=== PATIENT | female | born 1935 | race Caucasian/White ===

== ENCOUNTER → 2016-12-20 | Outpatient (CLI) | payer BC ==
[~2016-12-20] MED LIST: ALBUAER2 INH; ASPCH81X PO; CHOL20009 PO; CYAN100T PO; DILT120C68 PO; FLUT1SPR12 NAE; LAMO200T38 PO; LEVO100T7 PO; LOSA50TA54 PO; MIRT15TA3 PO; SERT25TA PO; SIMV20TA2 PO; TRAZ50TA35 PO
--- NOTE | 2016-12-20 16:38 | MAMMOGRAPHY REPORT ---
BILATERAL DIGITAL SCREENING MAMMOGRAM WITH CAD: 12/20/2016 CLINICAL HISTORY: Routine screening. Patient has no complaints. TECHNIQUE: Bilateral CC and MLO views were obtained. Current study was also evaluated with a Comput er Aided Detection (CAD) system. COMPARISON: Comparison is made to exams dated: 12/16/2015 mammogram, 11/19/2014 mammogram, 05/23/2013 mammogram, and 05/22/2012 mammogram - [facility]. BREAST COMPOSITION: There are scattered areas of fibroglandular density in both breasts. FINDINGS: There is a newly visualized 4.8 mm mass in the lower inner anterior right breast, for whi ch additional spot compression tomosynthesis views and possibly ultrasound are recommended. A 4.6 m m nodular asymmetry is seen posterior to the mass on the CC view which could represent normal fibrog landular tissue. However, evaluation of this second area should be performed at the time of spot co mpression views of the mass. There is a stable circumscribed 6 mm mass in the upper outer quadrant of the right breast. There ar e scattered benign-appearing calcifications and vascular calcifications in the breasts. No other carlos picious mass, architectural distortion or cluster of microcalcifications is seen. IMPRESSION: ACR BI-RADS CATEGORY 0: INCOMPLETE EVALUATION: NEED ADDITIONAL IMAGING EVALUATION The newly visualized 4.8 mm mass in the right lower inner quadrant, and second 4.6 mm nodular asymme try in the right medial breast need additional imaging evaluation. The patient will be called to schedule an appointment. Approximately 10% of breast cancers are not detected with mammography. A negative mammographic repor t should not delay biopsy if a clinically suggestive mass is present. Obdulia Vigil M.D. ay/:12/20/2016 13:57:05 Director Process Improvement: Kyra Bhatia, [facility] letter sent: Addl Imaging 0 BI-RADS Code: ACR BI-RADS Category 0: Incomplete Evaluation: Need Additional Imaging Evaluation
== END | disposition home or self-care (01) ==
LOC: C.MAMM 10:26
PROVIDERS: ATTEND Family Medicine
DX: Z12.31 Encounter for screening mammogram for malignant neoplasm of breast (principal); N63 Unspecified lump in breast

== ENCOUNTER → 2016-12-28 | Outpatient (CLI) | payer BC ==
--- NOTE | 2016-12-28 16:39 | MAMMOGRAPHY REPORT ---
UNILATERAL RIGHT DIGITAL DIAGNOSTIC MAMMOGRAM TOMOSYNTHESIS AND TARGETED RIGHT ULTRASOUND: 12/28/2016 CLINICAL HISTORY: 81-year-old woman called back from screening mammography for a newly visualized sm all circumscribed mass and nodular asymmetry in the medial anterior right breast. TECHNIQUE: Spot compression CC and MLO to the digital and tomosynthesis images of the right anterior lower inner breast were obtained. COMPARISON: Comparison is made to exams dated: 12/20/2016 mammogram, 12/16/2015 mammogram, 11/19/2014 mammogram, and 05/23/2013 mammogram - [facility]. BREAST COMPOSITION: There are scattered areas of fibroglandular density in the right breast. FINDINGS: There is persistence of a circumscribed round 4 mm mass in the approximate 5:00 anterior right breast. No associated architectural distortion or clustered microcalcification. The recently described 4 mm nodular asymmetry posterior to the mass is no longer identified and could have repre sented normal overlapping tissue. There is minimal vascular calcification in the right breast. Targeted ultrasound was performed throughout the lower inner quadrant of the right breast. In the 5 :30 axis, 1 cm from the nipple, there is a well-circumscribed round hypoechoic solid versus cystic m ass with internal echogenic reflectors. This mass measures 4.2 x 3.9 and 3.6 mm. This likely corre lates with the newly visualized mammographic mass and is indeterminate. Ultrasound guided cyst aspi ration versus core needle biopsy is recommended. In the adjacent 5:30 right breast, 1 cm from the n ipple, there is a more cystic-appearing 3.3 mm mass in the subdermal aspect of the breast which is b enign in appearance. No other suspicious solid mass is identified. IMPRESSION: ACR BI-RADS CATEGORY 4: SUSPICIOUS, TARGETED ULTRASOUND ACR BI-RADS CATEGORY 4: SUSPICI OUS 1. There is a benign appearing solid versus cystic 4.2 mm mass in the 5:30 right breast identified on ultrasound, thought to correlate with a newly visualized mammographic mass. Ultrasound-guided cy st aspiration versus core needle biopsy is recommended, and correlation with postprocedure mammogram s is recommended to ensure resolution of the mammographic mass. 2. A small 4 mm nodular asymmetry identified posterior to the circumscribed mass was no longer seen with additional mammographic and tomographic views, confirming benignity, likely normal overlapping fibroglandular tissue. These results and recommendations were discussed with the patient at the time of the exam. She tent atively scheduled the biopsy prior to leaving our department. Approximately 10% of breast cancers are not detected with mammography. A negative mammographic repor t should not delay biopsy if a clinically suggestive mass is present. Obdulia Vigil M.D. ay/:12/28/2016 15:26:06 Gusset Edger: Kyra Bhatia, [facility] letter sent: Abnormal 4/5 BI-RADS Code: ACR BI-RADS Category 4: Suspicious Ultrasound BI-RADS: ACR BI-RADS Category 4: Suspic ious
== END | disposition home or self-care (01) ==
LOC: C.MAMM 08:26
PROVIDERS: ATTEND Family Medicine
DX: N63 Unspecified lump in breast (principal)

== ENCOUNTER → 2017-01-05 | Outpatient (CLI) | payer BC ==
--- NOTE | 2017-01-05 14:41 | MAMMOGRAPHY REPORT ---
ASPIRATION RIGHT BREAST: 01/05/2017 CLINICAL HISTORY: Right 5:30 breast mass. PATIENT CONSENT: The procedure and risks of ultrasound-guided cyst aspiration were discussed in full with the patient. Both oral and written consents were obtained. PROCEDURE DESCRIPTION: With ultrasound guidance, aseptic technique, and 1% lidocaine as a local anes thetic, the mass of concern in the right 5:30 breast was aspirated to completion. Benign type fluid was obtained and discarded. Direct pressure was applied to the site immediately post procedure and hemostasis was achieved. The patient tolerated the procedure without complication. Postprocedural mammograms were obtained; see separate dictation for details. COMPARISON: Comparison is made to exams dated: 01/05/2017 mammogram, 12/28/2016 ultrasound, 12/28/2016 mammogram, 12/20/2016 mammogram, and 12/16/2015 mammogram - [facility]. IMPRESSION: ASPIRATION Successful ultrasound-guided aspiration of the right 5:30 breast mass. Given that it completely asp irated, it is consistent with a benign cyst. The aspirated fluid was discarded. Recommend routine bilateral screening mammograms in one year. Landy Mittal M.D. /:01/05/2017 09:26:09 Putty And Patch Worker: Kyra GARCIAS(Tracie)(M), [facility]
--- NOTE | 2017-01-05 14:42 | MAMMOGRAPHY REPORT ---
UNILATERAL RIGHT DIGITAL DIAGNOSTIC MAMMOGRAM TOMOSYNTHESIS: 01/05/2017 CLINICAL HISTORY: Status post ultrasound guided aspiration of a right 5:30 breast mass. TECHNIQUE: Breast tomosynthesis in addition to standard 2D mammography was performed. Postprocedur al right CC and MLO and spot compression right CC 2-D and were obtained. COMPARISON: Comparison is made to exams dated: 12/28/2016 mammogram, 12/20/2016 mammogram, 12/16/2015 mammogram, 11/19/2014 mammogram, and 12/28/2016 ultrasound - [facility]. BREAST COMPOSITION: There are scattered areas of fibroglandular density in the right breast. FINDINGS: The previously described round circumscribed benign-appearing mass seen within the right lower inner quadrant is no longer clearly evident on the postprocedural mammograms after aspiration of the right 5:30 breast mass, indicating good correlation between the aspirated sonographic mass an d the mammographic mass. Other smaller round/oval circumscribed benign-appearing masses are seen wi thin the right breast, which are benign given the morphology and multiplicity and likely represent s mall cysts. IMPRESSION: ACR BI-RADS CATEGORY 2: BENIGN There is no mammographic evidence of malignancy. A 1 year screening mammogram is recommended. The p atient has been verbally notified of the results. Approximately 10% of breast cancers are not detected with mammography. A negative mammographic repor t should not delay biopsy if a clinically suggestive mass is present. Landy Mittal M.D. ah/:01/05/2017 09:28:42 Field Care Advocate: Kyra GARCIAS(R)(M), [facility] letter sent: Normal 1/2 BI-RADS Code: ACR BI-RADS Category 2: Benign
== END | disposition home or self-care (01) ==
LOC: C.MAMM 08:46
PROVIDERS: ATTEND Family Medicine
DX: N63 Unspecified lump in breast (principal)

== ENCOUNTER 2017-06-11 14:46 | Observation (INO) | payer BC ==
[~2017-06-11] VITALS: Ht 165.1 cm; Wt 90.8 kg
[~2017-06-11 14:46] MED LIST changes: -LAMO200T38 PO
[2017-06-11] MEDS ORDERED: SODIUM CHLORIDE 0.9% 1000ML 1,000 ML IV STA (15:10)
[2017-06-11] MEDS ORDERED: SODIUM CHLORIDE 0.9% 500ML 500 ML IV STA (15:10)
--- NOTE | 2017-06-11 15:17 | EMERGENCY ROOM VISIT NOTE ---
History Report prepared by Anthony: Kim Fajardo Under the Supervision of: Dr. Annemarie Alanis M.D. First contact with patient: 14:55 Chief Complaint: DIZZY Stated Complaint: DIZZINESS Nursing Triage Summary: triage note: Pt reports dizziness since this am. pt was seen at [facility] and sent to ed for further eval. pt reports she had an abnormal ekg at [facility]. History of Present Illness The patient is a 82 year old female who presents to the Emergency Room with complaints of an episode of dizziness that occurred this morning. The patient states that she was up late last night and when she got up this morning she was dizzy and felt like she was going to fall. She notes that the episode lasted 30 minutes and she wasn't able to stand during it. The patient was at [facility] this afternoon and they found fluid her ear. She notes that she feels fine now. Source of History: patient Onset: this morning Position: other (generalized) Timing: other (episode) Review of Systems See HPI for pertinent positives & negatives. A total of 10 systems reviewed and were otherwise negative. Past Medical & Surgical Medical Problems: (1) Knee pain, left Surgical Problems: (1) H/O: hysterectomy Family History FHx: heart disease Hypertension Social History Smoking Status: Never Smoker Alcohol Use: none Marital Status: Housing Status: lives with significant other Occupation Status: retired Current/Historical Medications Scheduled Aspirin (Aspirin Chewable), 81 MG PO DAILY Cholecalciferol (Vitamin D), 2,000 UNITS PO DAILY Cyanocobalamin (Vitamin B-12), 50 MCG PO DAILY Diltiazem Hcl Ext Rel (Tiazac), 120 MG PO DAILY Lamotrigine (Lamictal), Unknown Dose PO HS Levothyroxine Sodium (Levothyroxine Sodium), 1 TAB PO DAILY Losartan Potassium (Cozaar), 50 MG PO DAILY Mirtazapine (Remeron), 15 MG PO HS Simvastatin (Zocor), 20 MG PO HS Trazodone Hcl (Trazodone), 50 MG PO HS Allergies Coded Allergies: Cephalexin (Verified Allergy, Unknown, RASH, 06/11/17) Prednisone (Verified Allergy, Unknown, psychosis, 06/11/17) Physical Exam Vital Signs Date Time Temp Pulse Resp B/P (MAP) Pulse Ox O2 Delivery O2 Flow Rate FiO2 06/11/17 17:30 74 18 158/100 98 Room Air 06/11/17 15:39 85 150/84 87 147/95 174/94 06/11/17 15:01 80 06/11/17 14:50 36.6 110 18 182/99 95 Room Air Physical Exam Vital signs reviewed. General: Well-appearing female, in no significant distress. HEENT: No scleral icterus, PERRLA, neck supple. Atraumatic. Cardiovascular: Regular rate with occasional ectopy, no extra sounds. Pulmonary: Clear to auscultation bilaterally, normal work of breathing. Abdomen: Soft, nontender, nondistended, positive bowel sounds. Musculoskeletal: Atraumatic, no peripheral edema. Neurologic: Patient awake alert and oriented x 3, full strength in all 4 extremities. Cranial nerves 2 through 12 grossly intact. Skin: Warm, dry, no rash Medical Decision & Procedures ER Provider Diagnostic Interpretation: Radiology results as stated below per my review and radiologist interpretation: CHEST ONE VIEW PORTABLE FINDINGS: Mild stable cardia megaly. Lungs are clear. Diaphragms are smooth. IMPRESSION: Mild stable cardiomegaly. No acute process. The above report was generated using voice recognition software. It may contain grammatical, syntax or spelling errors. Electronically signed by: Shahid Arriaga M.D. Laboratory Results 06/11/17 15:00 Red Blood Count 5.03, Mean Corpuscular Volume 94.2, Mean Corpuscular Hemoglobin 31.4, Mean Corpuscular Hemoglobin Concent 33.3, Mean Platelet Volume 10.4, Neutrophils (%) (Auto) 74.7, Lymphocytes (%) (Auto) 16.3, Monocytes (%) (Auto) 8.1, Eosinophils (%) (Auto) 0.3, Basophils (%) (Auto) 0.3, Neutrophils # (Auto) 7.27, Lymphocytes # (Auto) 1.59, Monocytes # (Auto) 0.79, Eosinophils # (Auto) 0.03, Basophils # (Auto) 0.03 06/11/17 15:00 Test 06/11/17 15:00 06/11/17 15:21 06/11/17 15:50 White Blood Count 9.74 K/uL (4.8-10.8) Red Blood Count 5.03 M/uL (4.2-5.4) Hemoglobin 15.8 g/dL (12.0-16.0) Hematocrit 47.4 % (37-47) Mean Corpuscular Volume 94.2 fL (80-100) Mean Corpuscular Hemoglobin 31.4 pg (25-34) Mean Corpuscular Hemoglobin Concent 33.3 g/dl (32-36) Platelet Count 215 K/uL (130-400) Mean Platelet Volume 10.4 fL (7.4-10.4) Neutrophils (%) (Auto) 74.7 % Lymphocytes (%) (Auto) 16.3 % Monocytes (%) (Auto) 8.1 % Eosinophils (%) (Auto) 0.3 % Basophils (%) (Auto) 0.3 % Neutrophils # (Auto) 7.27 K/uL (1.4-6.5) Lymphocytes # (Auto) 1.59 K/uL (1.2-3.4) Monocytes # (Auto) 0.79 K/uL (0.11-0.59) Eosinophils # (Auto) 0.03 K/uL (0-0.5) Basophils # (Auto) 0.03 K/uL (0-0.2) RDW Standard Deviation 44.5 fL (36.4-46.3) RDW Coefficient of Variation 12.9 % (11.5-14.5) Immature Granulocyte % (Auto) 0.3 % Immature Granulocyte # (Auto) 0.03 K/uL (0.00-0.02) Anion Gap 10.0 mmol/L (3-11) Est Creatinine Clear Calc Drug Dose 57.1 ml/min Estimated GFR () 74.0 Estimated GFR (Non- 63.8 BUN/Creatinine Ratio 18.4 (10-20) Calcium Level 9.3 mg/dl (8.5-10.1) Magnesium Level 2.2 mg/dl (1.8-2.4) Total Bilirubin 1.0 mg/dl (0.2-1) Direct Bilirubin 0.2 mg/dl (0-0.2) Aspartate Amino Transf (AST/SGOT) 19 U/L (15-37) Alanine Aminotransferase (ALT/SGPT) 25 U/L (12-78) Alkaline Phosphatase 77 U/L (45-117) Total Creatine Kinase 102 U/L (26-192) Creatine Kinase MB 2.3 ng/ml (0.5-3.6) Creatine Kinase MB Ratio 2.3 (0-3.0) Total Protein 7.2 gm/dl (6.4-8.2) Albumin 4.1 gm/dl (3.4-5.0) Thyroid Stimulating Hormone (TSH) 0.514 uIu/ml (0.300-4.500) Bedside Troponin I < 0.030 ng/ml (0-0.045) Urine Color DK YELLOW Urine Appearance CLEAR (CLEAR) Urine pH 6.0 (4.5-7.5) Urine Specific [place] 1.022 (1.000-1.030) Urine Protein 1+ (NEG) Urine Glucose (UA) NEG (NEG) Urine Ketones TRACE (NEG) Urine Occult Blood NEG (NEG) Urine Nitrite NEG (NEG) Urine Bilirubin NEG (NEG) Urine Urobilinogen NEG (NEG) Urine Leukocyte Esterase TRACE (NEG) Urine WBC (Auto) 1-5 /hpf (0-5) Urine RBC (Auto) 0-4 /hpf (0-4) Urine Hyaline Casts (Auto) 1-5 /lpf (0-5) Urine Epithelial Cells (Auto) >30 /lpf (0-5) Urine Bacteria (Auto) NEG (NEG) Laboratory results per my review. Medications Administered Medications (Trade) Dose Ordered Sig/Uche Route Start Time Stop Time Status Last Admin Dose Admin Sodium Chloride 500 ml @ 999 mls/hr Q31M STAT IV 06/11/17 15:10 06/11/17 15:40 DC 06/11/17 15:10 999 MLS/HR Sodium Chloride 1,000 ml @ 150 mls/hr Q6H40M STAT IV 06/11/17 15:10 06/11/17 21:49 06/11/17 15:10 150 MLS/HR ECG Indication: other (dizziness) Rate (beats per minute): 90 Rhythm: sinus rhythm Findings: 1st degree AV block, prolonged QT (QTC 440), other (sinus arhythmia, previous infarct) Change: no significant change Change: REPEAT EKG:sinus rhythm, 75 bpm, PAC, PVC, question second degree AV block ED Course 1508: Past medical records reviewed. The patient was evaluated in room C8. A complete history and physical examination was performed. 1510: Sodium Chloride 1000 ml @ 150 mls/hr IV, Sodium Chloride 500 ml @ 999 mls/ hr IV. 1630: I reviewed the patient's case with Dr. Santos Cardiology. 1651: I reviewed the patient's case with Dr. Woodson. He will evaluate the patient for further management. Medical Decision Differential diagnosis: Etiologies such as benign positional vertigo, dehydration, hypovolemia, anemia, tumor, infection, hypoglycemia, electrolyte abnormalities, cardiac sources, intracerebral event, toxicologic, neurologic, as well as others were entertained. This patient was evaluated and appeared to be in no significant distress. Physical examination is fairly unrevealing. The patient does have occasional ectopy on the monitor. Multiple EKGs were performed between the urgent care center and the emergency department. It is felt that the patient may have a second-degree AV block. I spoke with Dr. River of cardiology, he feels after reviewing the EKGs that this may represent a second-degree AV block as well. He also states that the patient does have a first-degree AV block with PACs. Given the patient's symptomatology and these findings, she will be evaluated by the hospitalist service for further management. The patient is aware of the plan and agrees. Medication Reconcilliation Current Medication List: was personally reviewed by me Blood Pressure Screening Patient's blood pressure: Elevated blood pressure Blood pressure disposition: Referred to PCP (refer to hospitalist) Consults Time Called: 1628 Consulting Physician: Dr. Santos Cardiology Returned Call: [phone] Discussed the patient's case Additional Consults: Time Called: 1650 Consulted Physician: Dr. Woodson Returned Call: [phone] Additional Comments: I reviewed the patient's case with Dr. Fuentes. He will evaluate the patient for further management. Impression Primary Impression: AV block, 2nd degree Scribe Attestation The scribe's documentation has been prepared under my direction and personally reviewed by me in its entirety. I confirm that the note above accurately reflects all work, treatment, procedures, and medical decision making performed by me. Departure Information Dispostion Being Evaluated By Hospitalist Referrals Bhaskar Wall M.D. (PCP) Patient Instructions My [facility]
[2017-06-11 15:21] LABS: BASO % 0.3 %; BASO ABS # 0.03 K/uL (0-0.2); COMPLETE YES; EOS % 0.3 %; HEMATOCRIT 47.4 % (37-47); IG% 0.3 %; LYMPH % 16.3 %; LYMPH ABS # 1.59 K/uL (1.2-3.4); MEAN CELL VOLUME 94.2 fL (80-100); MEAN CORPUSCULAR HEMOGLOBIN 31.4 pg (25-34); MEAN CORPUSCULAR HGB CONC 33.3 g/dl (32-36); MEAN PLATELET VOLUME 10.4 fL (7.4-10.4); MONO % 8.1 %; NEUT % 74.7 %; PLATELET COUNT 215 K/uL (130-400); RED BLOOD COUNT 5.03 M/uL (4.2-5.4); WHITE BLOOD COUNT 9.74 K/uL (4.8-10.8)
[2017-06-11] MEDS ORDERED: LAMO200T38 PO (15:21)
[2017-06-11 15:35] LABS: CREATININE 0.85 mg/dl (0.60-1.20)
[2017-06-11 15:36] LABS: BUN/CREATININE RATIO 18.4 (10-20); CALCIUM 9.3 mg/dl (8.5-10.1); MAGNESIUM 2.2 mg/dl (1.8-2.4); POTASSIUM 3.8 mmol/L (3.5-5.1)
[2017-06-11 15:47] LABS: CKMB/CK RATIO 2.3 (0-3.0); THYROID STIMULATING HORMONE 0.514 uIu/ml (0.300-4.500)
--- NOTE | 2017-06-11 15:55 | DIAGNOSTIC IMAGING REPORT ---
CHEST ONE VIEW PORTABLE CLINICAL HISTORY: lightheaded dyspnea COMPARISON STUDY: 02/10/2016 FINDINGS: Mild stable cardia megaly. Lungs are clear. Diaphragms are smooth. IMPRESSION: Mild stable cardiomegaly. No acute process. The above report was generated using voice recognition software. It may contain grammatical, syntax or spelling errors. Electronically signed by: Shahid Arriaga M.D. 06/11/2017 3:53 PM Dictated Date/Time: 06/11/2017 3:53 PM
[2017-06-11 16:04] LABS: URINE APPEARANCE CLEAR (CLEAR); URINE BILIRUBIN NEG (NEG); URINE COLOR DK YELLOW; URINE EPITHELIAL CELL AUTO >30 /lpf (0-5); URINE NITRITE NEG (NEG); URINE SPECIFIC GRAVITY 1.022 (1.000-1.030); UROBILINOGEN NEG (NEG); ZZUR CULT IF INDIC CLEAN CATCH NO
[2017-06-11 16:07] LABS: MANUAL MICROSCOPIC REQUIRED? NO; REVIEW REQ? NO
[2017-06-11] MEDS ORDERED: ONDANSETRON INJ 2 MG/ML 2 ML VIAL IV PRN (18:45)
[2017-06-11] MEDS ORDERED: ACETAMINOPHEN 325 MG TAB PO PRN (18:45)
[2017-06-11] MEDS ORDERED: MAGNESIUM HYDROXIDE SUSP 30 ML UDC PO PRN (18:45)
[2017-06-11] MEDS ORDERED: ALUMINUM/MAGNESIUM/SIMETH (MAALOX MAX) 30 ML UDC PO PRN (18:45)
--- NOTE | 2017-06-11 19:24 | History and Physical ---
History & Physical Date & Time of Service: Jun 11, 2017 at 19:07 Chief Complaint: Dizziness Primary Care Physician: Bhaskar Wall M.D. History of Present Illness Source: patient 82 y/o F Hx Hypothyroid, HTN, HPL, anxiety. Pt woke up this AM and suffered a dizzy spell where she was unable to stand for 30 min. Her symptoms resolved, however, she elected to attend the ER as there was a football game and she realized that if they recurred she would not be able to get to the ER in a timely manner. She was placed on a monitor in the ER and an irregular sinus rhythm was detected. Several EKGs were obtained which were consistent with episodes of type 2 AV block. She has not had any symptoms during these episodes which have not lasted more than a few seconds. She denies any CP, SOB, N/V, diaphoresis. Approximately 4 years ago following a colonoscopy, she states that she had an irregular heat rhythm. She could not provide specifics although she sees a knitter helper once yearly for follow-up. She also states that she may have had an episode of AF in the past. 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 She lives alone and maintains her independence. Smoking Status: Never Smoker Marital Status: Occupational Status: retired Multi-Drug Resistant Organisms History of MDRO: No Allergies Coded Allergies: Cephalexin (Verified Allergy, Unknown, RASH, 06/11/17) Prednisone (Verified Allergy, Unknown, psychosis, 06/11/17) Home Medications Scheduled Aspirin (Aspirin Chewable), 81 MG PO DAILY Cholecalciferol (Vitamin D), 2,000 UNITS PO DAILY Cyanocobalamin (Vitamin B-12), 50 MCG PO DAILY Diltiazem Hcl Ext Rel (Tiazac), 120 MG PO DAILY Lamotrigine (Lamictal), Unknown Dose PO HS Levothyroxine Sodium (Levothyroxine Sodium), 1 TAB PO DAILY Losartan Potassium (Cozaar), 50 MG PO DAILY Mirtazapine (Remeron), 15 MG PO HS Simvastatin (Zocor), 20 MG PO HS Trazodone Hcl (Trazodone), 50 MG PO HS Review of Systems Constitutional: No fever, No chills, No sweats Eyes: No worsening of vision ENT: No hearing loss, No nasal symptoms Respiratory: No cough, No wheezing Cardiovascular: No chest pain, No orthopnea, No PND Abdomen: No pain, No nausea, No vomiting Musculoskeletal: No joint pain Genitourinary - Female: No dysuria Neurologic: + vertigo, + balance problems, No memory loss, No paralysis Psychiatric: No depression symptoms Endocrine: No fatigue Hematologic / Lymphatic: No abnormal bleeding/bruising Integumentary: No rash Allergic / Immunologic: No environmental allergies Physical Exam Vital Signs Date Time Temp Pulse Resp B/P (MAP) Pulse Ox O2 Delivery O2 Flow Rate FiO2 06/11/17 17:30 74 18 158/100 98 Room Air 06/11/17 15:39 85 150/84 87 147/95 174/94 06/11/17 15:01 80 06/11/17 14:50 36.6 110 18 182/99 95 Room Air General Appearance: WD/WN, no apparent distress, + pertinent finding ([place], elderly female in no distress) Head: normocephalic, atraumatic Eyes: normal inspection ENT: normal ENT inspection, pharynx normal Neck: supple, no JVD Respiratory/Chest: chest non-tender, lungs clear, normal breath sounds, no respiratory distress, no accessory muscle use Cardiovascular: regular rate, rhythm, no edema, no gallop Abdomen/GI: normal bowel sounds, non tender, soft Back: normal inspection, no CVA tenderness Extremities/Musculoskelatal: normal inspection, no calf tenderness, normal capillary refill, no pedal edema, normal range of motion Neurologic/Psych: tax compliance representative II-XII nml as tested, no motor/sensory deficits, alert, oriented x 3 Skin: normal color, warm/dry, no rash Diagnostics Laboratory Results Results Past 24 Hours Test 06/11/17 15:00 06/11/17 15:21 06/11/17 15:50 Range/Units White Blood Count 9.74 4.8-10.8 K/uL Red Blood Count 5.03 4.2-5.4 M/uL Hemoglobin 15.8 12.0-16.0 g/dL Hematocrit 47.4 37-47 % Mean Corpuscular Volume 94.2 80-100 fL Mean Corpuscular Hemoglobin 31.4 25-34 pg Mean Corpuscular Hemoglobin Concent 33.3 32-36 g/dl Platelet Count 215 130-400 K/uL Mean Platelet Volume 10.4 7.4-10.4 fL Neutrophils (%) (Auto) 74.7 % Lymphocytes (%) (Auto) 16.3 % Monocytes (%) (Auto) 8.1 % Eosinophils (%) (Auto) 0.3 % Basophils (%) (Auto) 0.3 % Neutrophils # (Auto) 7.27 1.4-6.5 K/uL Lymphocytes # (Auto) 1.59 1.2-3.4 K/uL Monocytes # (Auto) 0.79 0.11-0.59 K/uL Eosinophils # (Auto) 0.03 0-0.5 K/uL Basophils # (Auto) 0.03 0-0.2 K/uL RDW Standard Deviation 44.5 36.4-46.3 fL RDW Coefficient of Variation 12.9 11.5-14.5 % Immature Granulocyte % (Auto) 0.3 % Immature Granulocyte # (Auto) 0.03 0.00-0.02 K/uL Sodium Level 141 136-145 mmol/L Potassium Level 3.8 3.5-5.1 mmol/L Chloride Level 109 98-107 mmol/L Carbon Dioxide Level 22 21-32 mmol/L Anion Gap 10.0 3-11 mmol/L Blood Urea Nitrogen 16 7-18 mg/dl Creatinine 0.85 0.60-1.20 mg/dl Est Creatinine Clear Calc Drug Dose 57.1 ml/min Estimated GFR () 74.0 Estimated GFR (Non- 63.8 BUN/Creatinine Ratio 18.4 10-20 Random Glucose 113 70-99 mg/dl Calcium Level 9.3 8.5-10.1 mg/dl Magnesium Level 2.2 1.8-2.4 mg/dl Total Bilirubin 1.0 0.2-1 mg/dl Direct Bilirubin 0.2 0-0.2 mg/dl Aspartate Amino Transf (AST/SGOT) 19 15-37 U/L Alanine Aminotransferase (ALT/SGPT) 25 12-78 U/L Alkaline Phosphatase 77 45-117 U/L Total Creatine Kinase 102 26-192 U/L Creatine Kinase MB 2.3 0.5-3.6 ng/ml Creatine Kinase MB Ratio 2.3 0-3.0 Total Protein 7.2 6.4-8.2 gm/dl Albumin 4.1 3.4-5.0 gm/dl Thyroid Stimulating Hormone (TSH) 0.514 0.300-4.500 uIu/ml Bedside Troponin I < 0.030 0-0.045 ng/ml Urine Color DK YELLOW Urine Appearance CLEAR CLEAR Urine pH 6.0 4.5-7.5 Urine Specific [place] 1.022 1.000-1.030 Urine Protein 1+ NEG Urine Glucose (UA) NEG NEG Urine Ketones TRACE NEG Urine Occult Blood NEG NEG Urine Nitrite NEG NEG Urine Bilirubin NEG NEG Urine Urobilinogen NEG NEG Urine Leukocyte Esterase TRACE NEG Urine WBC (Auto) 1-5 0-5 /hpf Urine RBC (Auto) 0-4 0-4 /hpf Urine Hyaline Casts (Auto) 1-5 0-5 /lpf Urine Epithelial Cells (Auto) >30 0-5 /lpf Urine Bacteria (Auto) NEG NEG EKG Several EKGs were reviewed - Sinus - PACs - no evidence of acute ischemia - episodes of type II AV block are apparent Impression Assessment and Plan 82 y/o F Hx Hypothyroid, HTN, HPL, anxiety. Pt woke up this AM and suffered a dizzy spell where she was unable to stand for 30 min. Her symptoms resolved, however, she elected to attend the ER as there was a football game and she realized that if they recurred she would not be able to get to the ER in a timely manner. She was placed on a monitor in the ER and an irregular sinus rhythm was detected. Several EKGs were obtained which were consistent with episodes of type 2 AV block. She has not had any symptoms during these episodes which have not lasted more than a few seconds. She denies any CP, SOB, N/V, diaphoresis. Approximately 4 years ago following a colonoscopy, she states that she had an irregular heat rhythm. She could not provide specifics although she sees a knitter helper once yearly for follow-up. She also states that she may have had an episode of AF in the past. 1) Dizziness - arrhyhthmia - she has not had symptoms coinciding with irregularities on monitor while in the EKG - it is questionable if the 2 are related. We will monitor overnight and consult he knitter helper AM. We do not know the nature of a previous arrhythmia so that this may well be a chronic issue. We have held her Diltiazem. 2) Hypothyroid - cont Synthroid - TSH WNL 3) HPL - cont Statin 4) HTN - cont ARB - Diltiazem held - monitor and can sub PRN 5) Anxiety - cont Lamictal , Remeron Full code - Heparin prophylaxis Total time for this admit including review of labs , meds, EKG , records - discussion with pt and ER attending - 37 min Level of Care Telemetry Resuscitation Status FULL RESUSCITATION VTE Prophylaxis VTE Risk Assessment Done? Y/N: Yes Risk Level: Moderate Given or contraindicated: Unfractionated heparin SQ
[2017-06-11 19:44] VITALS: BP 171/98; PULSE 91; TEMP 36.7; O2SAT 95; Ht 165.1 cm; Wt 90.8 kg
[2017-06-11] MEDS ORDERED: IV FLUIDS COMPLETED PRN (20:30)
[2017-06-11] MEDS: MIRTAZAPINE TAB 15 MG TAB PO SCH (20:51)
[2017-06-11] MEDS: SIMVASTATIN 20 MG TAB PO SCH (20:51)
[2017-06-11] MEDS: TRAZODONE HCL 50 MG TAB PO SCH (20:52)
[2017-06-11 20:54] LABS: PROTHROMBIN TIME (PATIENT) 10.5 SECONDS (9.0-12.0)
[2017-06-11] MEDS: HEPARIN SOD 5000 UNIT/0.5 ML CARP SQ SCH (22:08)
[2017-06-11 22:30] VITALS: BP 142/85
[2017-06-11 23:56] VITALS: BP 137/87; PULSE 92; TEMP 36.3; O2SAT 93
[2017-06-12 03:12] VITALS: BP 136/81; PULSE 92; TEMP 36.5; O2SAT 93
[2017-06-12] MEDS: LEVOTHYROXINE 100 MCG TAB PO SCH (06:04)
[2017-06-12] MEDS: HEPARIN SOD 5000 UNIT/0.5 ML CARP SQ SCH ×3 (06:05→20:47)
[2017-06-12 07:42] VITALS: BP 153/93; PULSE 81; TEMP 36.6; O2SAT 94
[2017-06-12] MEDS: LOSARTAN POTASSIUM 50 MG TAB PO SCH (07:45)
[2017-06-12] MEDS: ASPIRIN 81 MG ECTAB PO SCH (07:45)
[2017-06-12] MEDS: CYANOCOBALAMIN 100 MCG TAB (VIT B-12) PO SCH (07:46)
[2017-06-12] MEDS: CHOLECALCIFEROL 1000 INTER.UNIT TAB PO SCH (07:46)
[2017-06-12 11:27] VITALS: BP_SYST 154; BP_SYST 166; BP_DIAS 105; BP_DIAS 92; PULSE 87; TEMP 36.5; O2SAT 93
[2017-06-12 16:50] VITALS: BP 164/89; PULSE 89; TEMP 36.6; O2SAT 93
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
[2017-06-12 20:20] VITALS: BP 162/93; PULSE 93; TEMP 36.6
[2017-06-12] MEDS: TRAZODONE HCL 50 MG TAB PO SCH (20:43)
[2017-06-12] MEDS: MIRTAZAPINE TAB 15 MG TAB PO SCH (20:44)
[2017-06-12] MEDS: SIMVASTATIN 20 MG TAB PO SCH (20:45)
[2017-06-12 23:44] VITALS: BP 142/83; PULSE 67; TEMP 36.5; O2SAT 94
[2017-06-13 03:37] VITALS: BP 138/76; PULSE 78; TEMP 36.5; O2SAT 95
[2017-06-13] MEDS: LEVOTHYROXINE 100 MCG TAB PO SCH (06:14)
[2017-06-13] MEDS: HEPARIN SOD 5000 UNIT/0.5 ML CARP SQ SCH (06:15)
[2017-06-13 06:55] VITALS: BP 147/79; PULSE 81; TEMP 36.6; O2SAT 96
[2017-06-13] MEDS: CYANOCOBALAMIN 100 MCG TAB (VIT B-12) PO SCH (08:33)
[2017-06-13] MEDS: ASPIRIN 81 MG ECTAB PO SCH (08:33)
[2017-06-13] MEDS: LOSARTAN POTASSIUM 50 MG TAB PO SCH (08:33)
[2017-06-13] MEDS: CHOLECALCIFEROL 1000 INTER.UNIT TAB PO SCH (08:34)
[2017-06-13 10:34] VITALS: BP 128/84; PULSE 64; TEMP 36.8; O2SAT 93
--- NOTE | 2017-06-13 11:16 | Discharge Instructions ---
Discharge Instructions Date of Service Jun 13, 2017. Admission Reason for Admission: Dizziness, Heart [place] [address] Second Degree Discharge Discharge Diagnosis / Problem: Irregular heart beat (PVC) Discharge Goals Goal(s): Improve function, Increase independence, Diagnostic testing, Prevent Disease Progression (see Dr. Hooper for heart monitor) Activity Recommendations Activity Limitations: resume your previous activity Lifting Limitations: none Exercise/Sports Limitations: none May Resume Sexual Activity: when tolerated Shower/Bathe: no limitations Driving or Machine Use: no limitations . Instructions / Follow-Up Instructions / Follow-Up See Dr. Hooper for outpatient heart monitor. See family doctor within 7 days. Current Hospital Diet Patient's current hospital diet: AHA Diet (Heart Healthy) Discharge Diet Recommended Diet: AHA Diet (Heart Healthy) Fluid Restriction: None Procedures Procedures Performed: Chest xray, EKG Pending Studies Studies pending at discharge: no Medical Emergencies . Who to Call and When: Medical Emergencies: If at any time you feel your situation is an emergency, please call 911 immediately. . Non-Emergent Contact Non-Emergency issues call your: Primary Care Provider . . "Provider Documentation" section prepared by Arnel Escalante. . Station Repairer Recommendations Station Repairer Recommendations: F/u with Dr. Hooper for outpatient heart monitor VTE Core Measure Inpt VTE Proph given/why not?: Unfractionated heparin SQ
[2017-06-13 11:20] VITALS: BP 128/84; PULSE 64; TEMP 36.8; O2SAT 93
--- NOTE | 2017-06-13 11:44 | CARDIOLOGY CONSULTATION ---
DATE OF CONSULTATION: 06/13/2017 REQUESTING PHYSICIAN: Zac Vásquez D.O. RN HOME HEALTH: Simone Hooper D.O., [facility] Cardiology. REASON FOR CONSULTATION: Dizziness, Wenckebach rhythm, and blocked PACs. Dear Zac: Thank you for requesting cardiology consultation on [place] with regards to her episode of dizziness. She notes that she awoke Tuesday morning when she felt slightly dizzy. It was not a room spinning sensation, but rather she felt unsteady on her feet. She went to [facility] due to the [facility] football game. There, she was found to have some fluid in her left ear, none on the right side. She denies any recent URI symptoms, fevers, chills or sweats. Dizziness lasted about 20 minutes. She was unaware of any palpitations or fluttering or feeling her heart racing. She came to the Emergency Room. In the Emergency Room, she was found to have an EKG that was consistent with Wenckebach physiology along with blocked PACs. There was some concern she may have higher degrees of AV block. Since Tuesday, she has been ambulating in the hallways and feels well. She has had no dizziness. She does describe an episode up about 2 weeks ago where she had a pulsating mild left-sided chest discomfort with a little bit of left jaw discomfort. She took an aspirin and went away. She does note that she thinks she ate late that night. Since then she has been able to do activity without any of the pulsation type tightness and she denies any central chest pressure, chest heaviness radiation of any discomfort to her neck, jaw, back or arm. There was never any diaphoresis or associated shortness of breath. Her appetite has been stable. Her weight is stable. She denies any presyncope or syncope. The rest of her complete review of systems is otherwise negative. PAST MEDICAL HISTORY: 1. Anxiety. 2. Chronic cough thought related to allergies. 3. Depression. 4. Hypertension. 5. Hyperlipidemia. 6. Hypothyroidism. 7. History of an abnormal EKG with inferior Q-waves and a negative dobutamine stress echo June 2011. 8. Episode of atrial fibrillation with dobutamine, atropine stress test June 2011. 9. 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 FAMILY HISTORY: Mom at 95, a hip fracture. Dad at 76. He had bypass surgery twice, initially in his 50s. SOCIAL HISTORY: She is . She denies any tobacco or alcohol. She is a previous recovering alcoholic. She has 4 children. ALLERGIES: CEPHALEXIN AND LISINOPRIL CAUSED A COUGH. MEDICATIONS: Reviewed in electronic medical record. PHYSICAL EXAMINATION: GENERAL: She is awake, alert, oriented x3. She is in no acute distress. She is a well-appearing female who looks her younger than her stated age. VITAL SIGNS: Her heart rate 81, respirations 18, blood pressure 147/79. Her sats 96% on room air. HEENT: 2+ carotid upstrokes. No evidence of carotid bruits. Jugular venous pressure appeared normal. Sclerae is anicteric. Her hearing is normal. LUNGS: Clear to auscultation bilaterally. No rales, rhonchi or wheezing. HEART: Regular rate and rhythm with occasional ectopy. No appreciable murmurs, rubs or gallops. ABDOMEN: Soft, nontender, nondistended, positive bowel sounds. EXTREMITIES: No clubbing, cyanosis or edema. PSYCHIATRIC: Affect appeared appropriate. All of her EKGs as well as her telemetry were reviewed 06/11/2017 normal sinus rhythm, first degree AV block, marked sinus arrhythmia, blocked PAC; 06/11/2017 at 1604, sinus rhythm, first degree AV block, sinus arrhythmia, blocked PAC, escape beat burst PVC in the middle strip looks like Wenckebach. The last 4 beats there appears to be a P-wave in the RIZWAN in the previous T-wave with a long first-degree AV block. EKG this morning, sinus rhythm, first degree AV block, blocked PACs. Her telemetry was reviewed it appears to be blocked PACs and Wenckebach physiology. There was no obvious second-degree type 2 heart block. IMPRESSION: 1. Dizziness of unclear etiology, possibly related to inner ear issue. 2. History of first degree atrioventricular block, blocked premature atrial contractions and Wenckebach physiology without evidence of second-degree type 2 block. 3. History of an abnormal EKG with inferior Q-waves and a negative dobutamine stress echo June 2011. As discussed with the hospitalist service, I would have her remain off for diltiazem for now she should have a 2-week monitor to make sure she does not have any evidence of higher degrees of atrioventricular block. She has had no further dizziness. She is ambulating without any issues. I did discuss her she would have worsening or dizziness that we can correlate arrhythmia with, then we would have to discuss if she is having higher degrees of atrioventricular block whether she would need a pacemaker or not. Thank you for allowing us to participate in her care. She should remain on the rest of her medical regimen.
--- NOTE | 2017-06-13 14:10 | Progress Note ---
Progress Note Date of Service Jun 13, 2017. Progress Note Called Ms. Marshall at home. She arrived home safely and indicated that she was very pleased with her stay at [facility] and had no complaints. I did advise her that in review of Dr. Hooper's consult note from today that she should not take her Diltiazem until seen by Dr. Hooper. She stated understanding and had no questions. She had no further questions regarding her instructions, medications, or hospital stay.
--- NOTE | 2017-06-13 14:27 | Discharge Summary ---
Discharge Summary Date of Service Jun 13, 2017. Discharge Summary Admission Date: Jun 11, 2017 at 18:43 Discharge Date: Jun 13, 2017 Discharge Disposition: Home Principal Diagnosis: Cardiac Arrhythmia Problems/Secondary Diagnoses: Heart block vs PVC: thought to be iatrogenic from home meds Consultations: Dr. Hooper- Cardiology Medication Reconciliation Continued Medications: Aspirin (Aspirin Chewable) 81 Mg Chew 81 MG PO DAILY Cholecalciferol (Vitamin D) 2,000 Unit Tab 2000 UNITS PO DAILY Cyanocobalamin (Vitamin B-12) 100 Mcg Tab 50 MCG PO DAILY, TAB Diltiazem Hcl Ext Rel (Tiazac) 120 Mg Capcr 120 MG PO DAILY, CAP Lamotrigine (Lamictal) 200 Mg Tab Unknown Dose PO HS, TAB Levothyroxine Sodium (Levothyroxine Sodium) 100 Mcg Tab 1 TAB PO DAILY for 90 Days, #90 TAB 3 Refills Losartan Potassium (Cozaar) 50 Mg Tab 50 MG PO DAILY, TAB Mirtazapine (Remeron) 15 Mg Tab 15 MG PO HS, TAB Simvastatin (Zocor) 20 Mg Tab 20 MG PO HS, TAB Trazodone Hcl (Trazodone) 50 Mg Tab 50 MG PO HS, TAB Discharge Exam Review of Systems: Constitutional: No fever, No chills, No weakness Eyes: No worsening of vision, No eye pain ENT: No hearing loss, No unusual epistaxis, No sore throat Respiratory: No cough, No sputum Cardiovascular: No chest pain, No orthopnea, No palpitations Abdomen: No pain, No nausea Musculoskeletal: No joint pain, No muscle pain Genitourinary - Female: No dysuria, No urinary frequency Genitourinary - Male: No hematuria, No dysuria Neurologic: No memory loss, No paralysis Psychiatric: No depression symptoms, No anhedonism Endocrine: No fatigue, No excessive thirst Hematologic / Lymphatic: No abnormal bleeding/bruising, No clotting problems Integumentary: No rash, No itch Physical Exam: General Appearance: WD/WN Eyes: normal inspection ENT: normal ENT inspection Neck: supple, no adenopathy Respiratory/Chest: chest non-tender, lungs clear Cardiovascular: regular rate, rhythm, no edema, no murmur, normal peripheral pulses, + extra beats Abdomen / GI: normal bowel sounds, non tender, soft, no organomegaly Extremities: normal inspection, no calf tenderness, normal capillary refill Neurologic/Psychiatric: no motor/sensory deficits Skin: normal color Lymphatic: no adenopathy Hospital Course Pt woke up ON 06/11/17 and suffered a dizzy spell where she was unable to stand for 30 min. Her symptoms resolved, however, she elected to attend the ER as there was a football game and she realized that if they recurred she would not be able to get to the ER in a timely manner. She was placed on a monitor in the ER and an irregular sinus rhythm was detected. Several EKGs were obtained which were abnormal and there was a question if these were second AV blocks. She has not had any symptoms during these episodes which have not lasted more than a few seconds. She denies any CP , SOB, N/V, diaphoresis. Approximately 4 years ago following a colonoscopy, she states that she had an irregular heat rhythm. She could not provide specifics although she sees a pipe covering molder once yearly for follow-up. She also states that she may have had an episode of AF in the past. Cardiology was consulted; It was deemed that patient had a first degree block with [place]bach and blocked PAC; was recommended to have patient be on a heart monitor as an outpatient. Patient will F/U with Dr. Hooper for this. Patient will also be off her Diltiazem off for 2 weeks. In regards to her clinical picture, patient had a hospital stay without any incidents as she no longer had any dizzy spells. Total Time Spent: Greater than 30 minutes This includes examination of the patient, discharge planning, medication reconciliation, and communication with other providers. Discharge Instructions Please refer to the electronic Patient Visit Report (Discharge Instructions) for additional information. Follow-Up Dr. Hooper appointment for outpatient cardiac monitoring. PCP f/u within 7 days Additional Copies To Bhaskar Wall M.D.
== END 2017-06-13 12:26 | disposition home or self-care (01) ==
LOC: C.EDB 14:47 → C.2T 18:43 → EEVIPCON 18:43 → ENRESERV 19:00
PROVIDERS: ADMIT Internal Medicine; ATTEND Internal Medicine Sports Medicine
DX: I44.1 Atrioventricular block, second degree (principal); I10 Essential (primary) hypertension; E78.5 Hyperlipidemia, unspecified; E03.9 Hypothyroidism, unspecified; F41.9 Anxiety disorder, unspecified; F10.21 Alcohol dependence, in remission; Z79.82 Long term (current) use of aspirin; Z82.49 Family history of ischemic heart disease and other diseases of the circulatory system; Z79.899 Other long term (current) drug therapy

== ENCOUNTER 2021-10-31 17:52 | Inpatient (IN) ==
[2021-10-31] MEDS ORDERED: OPTIRAY 320 125ml IV ONE (18:34)
[2021-10-31 18:35] LABS: iSTAT Creatinine 0.8 mg/dl (0.6-1.3); iSTAT Hemoglobin 16.3 g/dl (12.0-16.0); iSTAT Ionized Calcium 1.12 mmol/l (1.12-1.32); iSTAT Potassium 5.1 mmol/L (3.3-5.0)
--- NOTE | 2021-10-31 18:36 | Emergency Department Note ---
History of Present Illness General Chief complaint: Dizziness Time Seen by Provider: 10/31/21 17:57 History of Present Illness Provider complaint: Dizziness near syncope Onset (ago): hour(s) (1545) 86-year-old female presents emergency department for dizziness feel like she is going to pass out. Patient states this started when she was sewing at 3:45 PM. She denies any chest pain difficulty breathing hematuria dysuria melena hematochezia. She reports she feels like she is having difficulty speaking and that her lips feel numb. Home Medications Medication Instructions Recorded Confirmed Type lamotrigine 25 mg tablet (Lamictal) 25 mg PO HS 07/17/19 10/31/21 History levothyroxine 100 mcg tablet 100 mcg PO HS 07/17/19 10/31/21 History mirtazapine 15 mg tablet (Remeron) 15 mg PO HS 07/17/19 10/31/21 History simvastatin 20 mg tablet 20 mg PO HS 07/17/19 10/31/21 History trazodone 50 mg tablet 150 mg PO HS 07/17/19 10/31/21 History cyanocobalamin (vitamin B-12) 1,000 mcg PO HS 10/31/21 10/31/21 History 1,000 mcg tablet (Vitamin B-12) diltiazem HCl 180 mg 180 mg PO HS 10/31/21 10/31/21 History capsule,extended release 24 hr melatonin 5 mg tablet 5 mg PO HS PRN 10/31/21 10/31/21 History Allergies Allergy/AdvReac Type Severity Reaction Status Date / Time cephalexin Allergy Mild RASH Verified 10/31/21 18:35 lisinopril AdvReac Intermediate Cough Verified 10/31/21 18:35 prednisone AdvReac Intermediate psychosis Verified 10/31/21 18:35 sertraline AdvReac Mild Drowsy Verified 10/31/21 18:35 Past Med/Surg History Medical History Anxiety Atrial fibrillation episodic hx- follows with cardio (Dr. 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 Hooper) History of IBS Hyperlipidemia Hypertension Hypothyroidism Osteoarthritis Positional vertigo Tinnitus of right ear Surgical History History of colonoscopy History of esophagogastroduodenoscopy (EGD) History of knee surgery Left - 2020 History of tonsillectomy History of tooth extraction History of total abdominal hysterectomy and bilateral salpingo-oophorectomy Family History Son Family history of diabetes mellitus Grandfather (Paternal) Family history of diabetes mellitus Mother Hearing loss Father Heart disease Social History Smoking Status: Never smoker Second Hand Exposure: Yes (during AA meetings 40 years ago); Do You Dip or Chew Tobacco: No; 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, 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7 C Temperature Source Oral Pulse Rate 96 H 73 Pulse Rate [Apical] Pulse Rate from SpO2 Sensor 96 H 75 Respiratory Rate 20 22 17 Respiratory Effort / Characteristics Non-Labored Spontaneous Respiratory Depth Normal Respiratory Pattern Regular Blood Pressure 188/128 H 173/91 H Blood Pressure [Left Arm] Blood Pressure Mean 148 118 Blood Pressure Mean [Left Arm] Pulse Oximetry 93 93 96 Oxygen Delivery Method Room Air Sepsis Recent Fever Within 48 Hours No Sepsis New/Unexplained Change in Mental Status No Sepsis Action Taken by Nursing No Action Required 10/31/21 19:01 10/31/21 19:16 10/31/21 19:25 Temperature Temperature Source Pulse Rate 83 75 68 Pulse Rate [Apical] Pulse Rate from SpO2 Sensor Respiratory Rate 22 21 20 Respiratory Effort / Characteristics Respiratory Depth Respiratory Pattern Blood Pressure 173/130 H 181/95 H 185/109 H Blood Pressure [Left Arm] Blood Pressure Mean 144 123 134 Blood Pressure Mean [Left Arm] Pulse Oximetry 95 96 96 Oxygen Delivery Method Room Air Room Air Room Air Sepsis Recent Fever Within 48 Hours Sepsis New/Unexplained Change in Mental Status Sepsis Action Taken by Nursing 10/31/21 19:30 10/31/21 19:32 10/31/21 19:35 Temperature Temperature Source Pulse Rate 78 78 63 Pulse Rate [Apical] Pulse Rate from SpO2 Sensor Respiratory Rate 24 18 19 Respiratory Effort / Characteristics Respiratory Depth Respiratory Pattern Blood Pressure 188/101 H 174/82 H 168/103 H Blood Pressure [Left Arm] Blood Pressure Mean 130 112 124 Blood Pressure Mean [Left Arm] Pulse Oximetry 96 96 97 Oxygen Delivery Method Room Air Room Air Room Air Sepsis Recent Fever Within 48 Hours Sepsis New/Unexplained Change in Mental Status Sepsis Action Taken by Nursing 10/31/21 19:40 10/31/21 19:45 10/31/21 19:52 Temperature Temperature Source Pulse Rate 62 60 Pulse Rate [Apical] 71 Pulse Rate from SpO2 Sensor Respiratory Rate 22 21 21 Respiratory Effort / Characteristics Non-Labored Spontaneous Respiratory Depth Normal Respiratory Pattern Blood Pressure 171/100 H 152/116 H Blood Pressure [Left Arm] 150/85 H Blood Pressure Mean 123 128 Blood Pressure Mean [Left Arm] 106 Pulse Oximetry 97 97 95 Oxygen Delivery Method Room Air Room Air Room Air Sepsis Recent Fever Within 48 Hours Sepsis New/Unexplained Change in Mental Status Sepsis Action Taken by Nursing 10/31/21 20:00 10/31/21 20:07 10/31/21 20:16 Temperature Temperature Source Pulse Rate 76 74 Pulse Rate [Apical] 78 Pulse Rate from SpO2 Sensor Respiratory Rate 20 22 17 Respiratory Effort / Characteristics Non-Labored Spontaneous Respiratory Depth Normal Respiratory Pattern Blood Pressure 162/94 H 164/97 H Blood Pressure [Left Arm] 161/88 H Blood Pressure Mean 116 119 Blood Pressure Mean [Left Arm] 112 Pulse Oximetry 96 97 95 Oxygen Delivery Method Room Air Room Air Room Air Sepsis Recent Fever Within 48 Hours Sepsis New/Unexplained Change in Mental Status Sepsis Action Taken by Nursing 10/31/21 20:20 10/31/21 20:22 Temperature Temperature Source Pulse Rate 75 Pulse Rate [Apical] 64 Pulse Rate from SpO2 Sensor Respiratory Rate 21 23 Respiratory Effort / Characteristics Non-Labored Spontaneous Respiratory Depth Normal Respiratory Pattern Blood Pressure 152/95 H Blood Pressure [Left Arm] 152/95 H Blood Pressure Mean 114 Blood Pressure Mean [Left Arm] 114 Pulse Oximetry 94 95 Oxygen Delivery Method Room Air Room Air Sepsis Recent Fever Within 48 Hours Sepsis New/Unexplained Change in Mental Status Sepsis Action Taken by Nursing Physical Exam GENERAL: She is oriented to person, place, and time. She appears well-developed and well-nourished. She does not appear distressed. HENT: Exam performed. -Head: Normocephalic and atraumatic. -Right Ear: External ear normal. No mastoid tenderness. -Left Ear: External ear normal. No mastoid tenderness. -Mouth/Throat: The oropharynx is clear and moist. No trismus in the jaw. No dental abscesses or uvula swelling. No oropharyngeal exudate or tonsillar abscesses. EYES: Conjunctivae and EOM are normal. Pupils are equal, round, and reactive to light. Right eye exhibits no discharge. Left eye exhibits no discharge. No scleral icterus. NECK: Normal range of motion. Neck supple. No JVD present. No spinous process tenderness present. No carotid bruit present. No rigidity. No tracheal deviation and normal range of motion present. No Brudzinski's sign and no Kernig's sign noted. CV: Normal rate, regular rhythm, normal heart sounds and intact distal pulses. There is no peripheral edema. Palpable radial pulses bue. PULM/CHEST: Effort normal and breath sounds normal. No respiratory distress. No stridor. She has no wheezes. She has no rales. -Chest Wall: She exhibits no tenderness. ABD: The abdomen is soft. Bowel sounds are normal. She has no distension. No mass is present. There is no tenderness. There is no rebound, no guarding, no Rausch's sign and no tenderness at McBurney's point. Rovsig negative MUSC/SKEL: Normal range of motion. There is no peripheral edema, tenderness or deformity. LYMPH: No cervical adenopathy. NEURO:NIHSS: 2 (9: 1, 10:1) SKIN: Skin is warm and dry. She is not diaphoretic. PSYCH: She has a normal mood and affect. Behavior is normal. Judgment and thought content normal. Course Course 1756: The patient was evaluated in room A2. A complete history and physical exam was performed Cardiac monitoring: An order was placed for continuous cardiac monitoring. The monitor shows a rate of 70 with sinus rhythm Code stroke called on the patient. 1906: CT is negative. Spoke with Dr. Sujit Loving telestroke who evaluated the patient. She states the patient is now developing right upper extremity ataxia. She recommends given the patient thrombolytics. TNKase will be ordered for the patient. 1940. Patient was hypertensive. Labetalol boluses given to the patient prior to administration of TNK to the blood pressure within range to push the TNK. TNK pushed. Administered Medications Discontinued Medications Tenecteplase 24 mg/ Syringe 4.8 mls @ 57.6 mls/min IV NOW ONE; Protocol Stop: 10/31/21 19:21 Last Admin: 10/31/21 19:37 Dose: 57.6 mls/min Documented by: [id number] Cosigned by: [id number] Ioversol (Optiray 320 125ml) 120 ml IV ONCE ONE Stop: 10/31/21 18:35 Last Admin: 10/31/21 18:35 Dose: 120 ml Documented by: [id number] Labetalol HCl (Labetalol Hcl Iv 5 Mg/Ml 20ml) Confirm Administered Dose 10 mg IV .STK-MED ONE Stop: 10/31/21 19:19 Last Admin: 10/31/21 19:22 Dose: 10 mg Documented by: [id number] Cosigned by: [id number] Labetalol HCl (Labetalol Hcl Iv 5 Mg/Ml 20ml) 10 mg IV NOW STA Stop: 10/31/21 19:32 Last Admin: 10/31/21 19:39 Dose: Not Given Documented by: [id number] Labetalol HCl (Labetalol Hcl Iv 5 Mg/Ml 20ml) 20 mg IV NOW STA Stop: 10/31/21 19:32 Last Admin: 10/31/21 19:36 Dose: 20 mg Documented by: [id number] Cosigned by: [id number] Labetalol HCl (Labetalol Hcl Iv 5 Mg/Ml 20ml) Confirm Administered Dose 5 mg IV .STK-MED ONE Stop: 10/31/21 19:34 Last Admin: 10/31/21 19:36 Dose: Not Given Documented by: [id number] Lorazepam (Lorazepam 2 Mg/4 Ml Vial) Confirm Administered Dose 2 mg .ROUTE .STK- MED ONE Stop: 10/31/21 19:35 Last Admin: 10/31/21 19:36 Dose: Not Given Documented by: [id number] Sodium Chloride (Sodium Chloride 0.9% 10ml Flush) 20 ml IV NOW STA Stop: 10/31/21 19:11 Last Admin: 10/31/21 19:39 Dose: 20 ml Documented by: [id number] Critical Care Time Critical Care Time: Yes Total Critical Care Time: 85 I have personally spent greater than 85 minutes of critical care time in the direct management of this patient. This includes bedside care, interpretation of diagnostic studies, and testing, discussion with consultants, patient, and family members, and other required patient management activities. This 85 minutes is in excess of all separately billable procedures. Medical Decision Making Laboratory Data Result diagrams: 10/31/21 18:56 10/31/21 18:56 Lab Results 10/31/21 10/31/21 10/31/21 Range/Units 18:21 18:56 18:56 WBC 10.31 (4.8-10.8) K/uL RBC 4.70 (4.2-5.4) M/uL Hgb 15.3 (12.0-16.0) g/dL POC Hgb 16.3 H (12.0-16.0) g/dl Hct 45.6 (37-47) % POC Hct 48 H (37-47) % MCV 97.0 (80-100) fL MCH 32.6 (25-34) pg MCHC 33.6 (32-36) g/dL RDW Std Deviation 46.0 (36.4-46.3) fL RDW Coeff of Mallory 12.9 (11.5-14.5) % Plt Count 158 (130-400) K/uL MPV 10.3 (7.4-10.4) fL Immature Gran % (Auto) 0.2 % Neut % (Auto) 88.9 % Lymph % (Auto) 5.7 % [place] % (Auto) 4.9 % Eos % (Auto) 0.2 % Baso % (Auto) 0.1 % Neut # (Auto) 9.16 H (1.4-6.5) K/uL Lymph # (Auto) 0.59 L (1.2-3.4) K/uL [place] # (Auto) 0.51 (0.11-0.59) K/uL Eos # (Auto) 0.02 (0-0.5) K/uL Baso # (Auto) 0.01 (0-0.2) K/uL Immature Gran # (Auto) 0.02 (0.00-0.02) K/uL PT (9.0-12.0) Seconds INR (0.9-1.1) APTT (21.0-31.0) Seconds PTT Ratio POC Sodium 142 (135-144) mmol/L Sodium (136-145) mmol/L POC Potassium 5.1 H (3.3-5.0) mmol/L Potassium (3.5-5.1) mmol/L POC Chloride 107 (101-112) mmol/L Chloride (98-107) mmol/L Carbon Dioxide (21-32) mmol/L POC Total CO2 25 (24-31) mmol/L Anion Gap (3-11) POC Anion Gap 16.0 (16-25) mmol/L POC BUN 23 H (7-18) mg/dl BUN (6-23) mg/dl Creatinine (0.6-1.2) mg/dl POC Creatinine 0.8 (0.6-1.3) mg/dl Est Cr Clr Drug Dosing ml/min Est GFR ( Amer) ml/min Est GFR (Non-Af Amer) ml/min BUN/Creatinine Ratio (10-20) Glucose (70-99(Fasting)) mg/dl POC Glucose (other) 137 H (70-99) mg/dl Calcium (8.5-10.1) mg/dl POC Ioniz Calcium Thierry 1.12 (1.12-1.32) mmol/l Magnesium (1.7-2.4) mg/dl Total Bilirubin (0.2-1.0) mg/dl AST (13-39) U/L ALT (7-52) U/L Alkaline Phosphatase (34-104) U/L Troponin I (0-0.04) ng/ml Total Protein (6.0-8.3) gm/dl Albumin (3.4-5.0) gm/dl Globulin (2.5-4.0) gm/dl Albumin/Globulin Ratio (0.9-2) Urine Color Urine Appearance (Clear) Urine pH (4.5-7.5) Ur Specific [place] (1.000-1.030) Urine Protein (Negative) Urine Glucose (UA) (Negative) Urine Ketones (Negative) Urine Blood (Negative) Urine Nitrite (Negative) Urine Bilirubin (Negative) Urine Urobilinogen (Negative) Ur Leukocyte Esterase (Negative) Ethyl Alcohol mg/dL (<10.0) mg/dl SARS-CoV-2, RNA, NAAT (NEGATIVE) Blood Type A Positive Antibody Screen NEGATIVE 10/31/21 10/31/21 10/31/21 Range/Units 18:56 18:56 18:56 WBC (4.8-10.8) K/uL RBC (4.2-5.4) M/uL Hgb (12.0-16.0) g/dL POC Hgb (12.0-16.0) g/dl Hct (37-47) % POC Hct (37-47) % MCV (80-100) fL MCH (25-34) pg MCHC (32-36) g/dL RDW Std Deviation (36.4-46.3) fL RDW Coeff of Mallory (11.5-14.5) % Plt Count (130-400) K/uL MPV (7.4-10.4) fL Immature Gran % (Auto) % Neut % (Auto) % Lymph % (Auto) % [place] % (Auto) % Eos % (Auto) % Baso % (Auto) % Neut # (Auto) (1.4-6.5) K/uL Lymph # (Auto) (1.2-3.4) K/uL [place] # (Auto) (0.11-0.59) K/uL Eos # (Auto) (0-0.5) K/uL Baso # (Auto) (0-0.2) K/uL Immature Gran # (Auto) (0.00-0.02) K/uL PT 10.5 (9.0-12.0) Seconds INR 1.0 (0.9-1.1) APTT 25.5 (21.0-31.0) Seconds PTT Ratio 1.0 POC Sodium (135-144) mmol/L Sodium 140 (136-145) mmol/L POC Potassium (3.3-5.0) mmol/L Potassium 4.5 (3.5-5.1) mmol/L POC Chloride (101-112) mmol/L Chloride 106 (98-107) mmol/L Carbon Dioxide 23 (21-32) mmol/L POC Total CO2 (24-31) mmol/L Anion Gap 11 (3-11) POC Anion Gap (16-25) mmol/L POC BUN (7-18) mg/dl BUN 17 (6-23) mg/dl Creatinine 0.84 (0.6-1.2) mg/dl POC Creatinine (0.6-1.3) mg/dl Est Cr Clr Drug Dosing 57.9 ml/min Est GFR ( Amer) 72.9 ml/min Est GFR (Non-Af Amer) 62.9 ml/min BUN/Creatinine Ratio 20.2 H (10-20) Glucose 132 H (70-99(Fasting)) mg/dl POC Glucose (other) (70-99) mg/dl Calcium 9.2 (8.5-10.1) mg/dl POC Ioniz Calcium Thierry (1.12-1.32) mmol/l Magnesium 1.9 (1.7-2.4) mg/dl Total Bilirubin 1.1 H (0.2-1.0) mg/dl AST 17 (13-39) U/L ALT 14 (7-52) U/L Alkaline Phosphatase 58 (34-104) U/L Troponin I < 0.03 (0-0.04) ng/ml Total Protein 6.7 (6.0-8.3) gm/dl Albumin 4.2 (3.4-5.0) gm/dl Globulin 2.5 (2.5-4.0) gm/dl Albumin/Globulin Ratio 1.7 (0.9-2) Urine Color Urine Appearance (Clear) Urine pH (4.5-7.5) Ur Specific [place] (1.000-1.030) Urine Protein (Negative) Urine Glucose (UA) (Negative) Urine Ketones (Negative) Urine Blood (Negative) Urine Nitrite (Negative) Urine Bilirubin (Negative) Urine Urobilinogen (Negative) Ur Leukocyte Esterase (Negative) Ethyl Alcohol mg/dL < 10.0 (<10.0) mg/dl SARS-CoV-2, RNA, NAAT (NEGATIVE) Blood Type Antibody Screen 10/31/21 10/31/21 Range/Units 19:18 19:25 WBC (4.8-10.8) K/uL RBC (4.2-5.4) M/uL Hgb (12.0-16.0) g/dL POC Hgb (12.0-16.0) g/dl Hct (37-47) % POC Hct (37-47) % MCV (80-100) fL MCH (25-34) pg MCHC (32-36) g/dL RDW Std Deviation (36.4-46.3) fL RDW Coeff of Mallory (11.5-14.5) % Plt Count (130-400) K/uL MPV (7.4-10.4) fL Immature Gran % (Auto) % Neut % (Auto) % Lymph % (Auto) % [place] % (Auto) % Eos % (Auto) % Baso % (Auto) % Neut # (Auto) (1.4-6.5) K/uL Lymph # (Auto) (1.2-3.4) K/uL [place] # (Auto) (0.11-0.59) K/uL Eos # (Auto) (0-0.5) K/uL Baso # (Auto) (0-0.2) K/uL Immature Gran # (Auto) (0.00-0.02) K/uL PT (9.0-12.0) Seconds INR (0.9-1.1) APTT (21.0-31.0) Seconds PTT Ratio POC Sodium (135-144) mmol/L Sodium (136-145) mmol/L POC Potassium (3.3-5.0) mmol/L Potassium (3.5-5.1) mmol/L POC Chloride (101-112) mmol/L Chloride (98-107) mmol/L Carbon Dioxide (21-32) mmol/L POC Total CO2 (24-31) mmol/L Anion Gap (3-11) POC Anion Gap (16-25) mmol/L POC BUN (7-18) mg/dl BUN (6-23) mg/dl Creatinine (0.6-1.2) mg/dl POC Creatinine (0.6-1.3) mg/dl Est Cr Clr Drug Dosing ml/min Est GFR ( Amer) ml/min Est GFR (Non-Af Amer) ml/min BUN/Creatinine Ratio (10-20) Glucose (70-99(Fasting)) mg/dl POC Glucose (other) (70-99) mg/dl Calcium (8.5-10.1) mg/dl POC Ioniz Calcium Thierry (1.12-1.32) mmol/l Magnesium (1.7-2.4) mg/dl Total Bilirubin (0.2-1.0) mg/dl AST (13-39) U/L ALT (7-52) U/L Alkaline Phosphatase (34-104) U/L Troponin I (0-0.04) ng/ml Total Protein (6.0-8.3) gm/dl Albumin (3.4-5.0) gm/dl Globulin (2.5-4.0) gm/dl Albumin/Globulin Ratio (0.9-2) Urine Color Yellow Urine Appearance Clear (Clear) Urine pH 8.5 H (4.5-7.5) Ur Specific [place] 1.040 H (1.000-1.030) Urine Protein Negative (Negative) Urine Glucose (UA) Negative (Negative) Urine Ketones 1+ H (Negative) Urine Blood Negative (Negative) Urine Nitrite Negative (Negative) Urine Bilirubin Negative (Negative) Urine Urobilinogen Negative (Negative) Ur Leukocyte Esterase Negative (Negative) Ethyl Alcohol mg/dL (<10.0) mg/dl SARS-CoV-2, RNA, NAAT NEGATIVE (NEGATIVE) Blood Type Antibody Screen Imaging Data Radiologist's Impression: Chest X-Ray 10/31/21 18:17 XR chest 1V portable HISTORY: 86 years-old Female Stroke Like Symptoms acute strokelike symptoms COMPARISON: Chest radiograph 06/11/2070 TECHNIQUE: Portable AP view of the chest FINDINGS: Cardiac silhouette is enlarged. Mild chronic interstitial coarsening. No pneumothorax, pleural effusion, airspace consolidation or overt pulmonary edema. Degenerative changes of the shoulders and spine. IMPRESSION: Cardiomegaly without acute process. ACT 112: Negative or not required by law. The above report was generated using voice recognition software. It may contain grammatical, syntax or spelling errors. Electronically signed by: Manuel Hernandez M.D. 10/31/2021 7:[address] 10/31/21 18:17 CT head/brain wo con CLINICAL HISTORY: 86 years-old Female with Stroke Like Symptoms. Acute strokelike symptoms TECHNIQUE: Multiple axial CT images of the head were obtained without contrast. A dose lowering technique was utilized adhering to the principles of ALARA. COMPARISON: CTA head and neck of same day FINDINGS: No acute intracranial hemorrhage, midline shift, intracranial mass, hydrocephalus, territorial ischemia or abnormal extra-axial collection. Age- related involutional changes. White matter hypodensities suggest chronic microvascular ischemic disease. Senescent calcifications of the lentiform nuclei. 6 mm hypodense focus of the left cerebellar hemisphere, image 9 series 2. Ill-defined 7 mm hypodensity of the left cerebral hemisphere on image 6. Millimeter hypodense focus of the right frontal lobe santizo radiata on image 17 series 2. Cerebral vascular calcifications. The calvarium is intact. Bilateral mastoid effusions. The paranasal sinuses are generally clear. Unremarkable soft tissues. Prior bilateral lens repair. IMPRESSION: 1. No acute intracranial hemorrhage, midline shift or acute territorial infarct. 2. Age-related involutional changes with chronic microvascular ischemic disease. 3. 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 ACT 112: Negative or not required by law. The above report was generated using voice recognition software. It may contain grammatical, syntax or spelling errors. Electronically signed by: Manuel Hernandez M.D. 10/31/2021 6:41 PM Head CTA 10/31/21 18:17 CT angio neck with con, CT angio head w con CLINICAL HISTORY: 86 years-old Female with Stroke Like Symptoms. Acute strokelike symptoms COMPARISON STUDY: Head CT of same day TECHNIQUE: Following the IV administration of 120 mL of Optiray, CT angiogram of the head and neck was performed from the aortic arch to the skull apex. Images are reviewed in the axial, sagittal, and coronal planes. 3-D MIPS images are created and assessed. IV contrast was administered without complication. All measurements were calculated based on NASCET criteria. A dose lowering technique was utilized adhering to the principles of ALARA. CT DOSE: 1601.89 mGy.cm FINDINGS: Three-vessel morphology of the thoracic arch. Atherosclerotic plaque head the origin of the left subclavian artery results in mild stenosis. The common carotid arteries are widely patent. There is mild atherosclerotic plaque of the carotid bulbs and proximal cervical segments of the internal carotid arteries without significant stenosis. The middle and anterior cerebral arteries appear patent. The vertebral arteries are codominant and patent. The basilar and posterior cerebral arteries appear patent. The cerebral venous sinuses appear patent. There is no abnormal intracranial enhancement. Lung apices appear clear. There is no pneumothorax identified. Unremarkable soft tissues of the neck. Degenerative changes of the spine. Bilateral mastoid effusions. IMPRESSION:Atherosclerotic vascular disease without aneurysm, dissection, high- grade stenosis or arterial occlusion. ACT 112: Negative or not required by law. The above report was generated using voice recognition software. It may contain grammatical, syntax or spelling errors. Electronically signed by: Manuel Hernandez M.D. 10/31/2021 6:47 PM Neck CTA 10/31/21 18:17 CT angio neck with con, CT angio head w con CLINICAL HISTORY: 86 years-old Female with Stroke Like Symptoms. Acute strokelike symptoms COMPARISON STUDY: Head CT of same day TECHNIQUE: Following the IV administration of 120 mL of Optiray, CT angiogram of the head and neck was performed from the aortic arch to the skull apex. Images are reviewed in the axial, sagittal, and coronal planes. 3-D MIPS images are created and assessed. IV contrast was administered without complication. All measurements were calculated based on NASCET criteria. A dose lowering technique was utilized adhering to the principles of ALARA. CT DOSE: 1601.89 mGy.cm FINDINGS: Three-vessel morphology of the thoracic arch. Atherosclerotic plaque head the origin of the left subclavian artery results in mild stenosis. The common carotid arteries are widely patent. There is mild atherosclerotic plaque of the carotid bulbs and proximal cervical segments of the internal carotid arteries without significant stenosis. The middle and anterior cerebral arteries appear patent. The vertebral arteries are codominant and patent. The basilar and posterior cerebral arteries appear patent. The cerebral venous sinuses appear patent. There is no abnormal intracranial enhancement. Lung apices appear clear. There is no pneumothorax identified. Unremarkable soft tissues of the neck. Degenerative changes of the spine. Bilateral mastoid effusions. IMPRESSION:Atherosclerotic vascular disease without aneurysm, dissection, high- grade stenosis or arterial occlusion. ACT 112: Negative or not required by law. The above report was generated using voice recognition software. It may contain grammatical, syntax or spelling errors. Electronically signed by: Manuel Hernandez M.D. 10/31/2021 6:47 PM ECG Data Indication: + weakness Rate (beats per minute): 97 Rhythm: + normal sinus ECG Intervals/blocks: + Normal QRS, + Normal TN and + Normal QT-c ECG ST segments: + Normal ST segments [facility] Narrative 1756: The patient was evaluated in room A2. A complete history and physical exam was performed Cardiac monitoring: An order was placed for continuous cardiac monitoring. The monitor shows a rate of 70 with sinus rhythm Code stroke called on the patient. 1906: CT is negative. Spoke with Dr. Sujit Loving telestroke who evaluated the patient. She states the patient is now developing right upper extremity ataxia. She recommends given the patient thrombolytics. TNKase will be ordered for the patient. 1939. Patient was hypertensive. Labetalol boluses given to the patient prior to administration of TNK to the blood pressure within range to push the TNK. TNK pushed. Impression & Plan Cerebrovascular accident Discharge Plan Visit Data Chief Complaint: Dizziness ED Provider: Matthew Whitmore Discharge Problem: Cerebrovascular accident Patient Disposition: Admitted As Inpatient Forms Stand Alone Forms: [facility] Prescriptions Prescriptions: No Action trazodone 50 mg Tablet 150 mg PO HS RF: 0 lamotrigine [Lamictal] 25 mg Tablet 25 mg PO HS RF: 0 levothyroxine 100 mcg Tablet 100 mcg PO HS RF: 0 simvastatin 20 mg Tablet 20 mg PO HS RF: 0 mirtazapine [Remeron] 15 mg Tablet 15 mg PO HS RF: 0 diltiazem HCl 180 mg capsule,extended release 24hr 180 mg PO HS RF: 0 cyanocobalamin (vitamin B-12) [Vitamin B-12] 1,000 mcg Tablet 1,000 mcg PO HS RF: 0 melatonin 5 mg Tablet 5 mg PO HS PRN (Reason: Sleep) RF: 0 Referrals Referrals: Bhaskar Wall MD [Primary Care Provider] -
--- NOTE | 2021-10-31 18:42 | CT Scan Report ---
CT head/brain wo con CLINICAL HISTORY: 86 years-old Female with Stroke Like Symptoms. Acute strokelike symptoms TECHNIQUE: Multiple axial CT images of the head were obtained without contrast. A dose lowering tech nique was utilized adhering to the principles of ALARA. COMPARISON: CTA head and neck of same day FINDINGS: No acute intracranial hemorrhage, midline shift, intracranial mass, hydrocephalus, territorial ischem ia or abnormal extra-axial collection. Age-related involutional changes. White matter hypodensities s uggest chronic microvascular ischemic disease. Senescent calcifications of the lentiform nuclei. 6 mm hypodense focus of the left cerebellar hemisphere, image 9 series 2. Ill-defined 7 mm hypodensity of the left cerebral hemisphere on image 6. Millimeter hypodense focus of the right frontal lobe santizo radiata on image 17 series 2. Cerebral vascular calcifications. The calvarium is intact. Bilateral mastoid effusions. The paranasal sinuses are generally clear. Unr emarkable soft tissues. Prior bilateral lens repair. IMPRESSION: 1. No acute intracranial hemorrhage, midline shift or acute territorial infarct. 2. Age-related involutional changes with chronic microvascular ischemic disease. 3. There is a chronic appearing subcentimeter lacunar infarct of the left cerebellar hemisphere along with age-indeterminate right frontal lobe santizo radiata and left cerebellar hemisphere lacunar infa rcts. ACT 112: Negative or not required by law. The above report was generated using voice recognition software. It may contain grammatical, syntax o r spelling errors. Electronically signed by: Manuel Hernandez M.D. 10/31/2021 6:41 PM
--- NOTE | 2021-10-31 18:48 | CT Scan Report ---
CT angio neck with con, CT angio head w con CLINICAL HISTORY: 86 years-old Female with Stroke Like Symptoms. Acute strokelike symptoms COMPARISON STUDY: Head CT of same day TECHNIQUE: Following the IV administration of 120 mL of Optiray, CT angiogram of the head and neck wa s performed from the aortic arch to the skull apex. Images are reviewed in the axial, sagittal, and c oronal planes. 3-D MIPS images are created and assessed. IV contrast was administered without complic ation. All measurements were calculated based on NASCET criteria. A dose lowering technique was util ized adhering to the principles of ALARA. CT DOSE: 1601.89 mGy.cm FINDINGS: Three-vessel morphology of the thoracic arch. Atherosclerotic plaque head the origin of the left subc lavian artery results in mild stenosis. The common carotid arteries are widely patent. There is mild atherosclerotic plaque of the carotid bulbs and proximal cervical segments of the internal carotid ar teries without significant stenosis. The middle and anterior cerebral arteries appear patent. The walt tebral arteries are codominant and patent. The basilar and posterior cerebral arteries appear patent. The cerebral venous sinuses appear patent. There is no abnormal intracranial enhancement. Lung apices appear clear. There is no pneumothorax identified. Unremarkable soft tissues of the neck. Degenerative changes of the spine. Bilateral mastoid effusions. IMPRESSION:Atherosclerotic vascular disease without aneurysm, dissection, high-grade stenosis or yesica rial occlusion. ACT 112: Negative or not required by law. The above report was generated using voice recognition software. It may contain grammatical, syntax o r spelling errors. Electronically signed by: Manuel Hernandez M.D. 10/31/2021 6:47 PM
[2021-10-31 19:09] LABS: Basophils # (auto) 0.01 K/uL (0-0.2); Basophils % (auto) 0.1 %; Eosinophils # (auto) 0.02 K/uL (0-0.5); Eosinophils % (auto) 0.2 %; Hematocrit (blood only) 45.6 % (37-47); Hemoglobin 15.3 g/dL (12.0-16.0); Immature Granulocytes # (auto) 0.02 K/uL (0.00-0.02); Immature Granulocytes % (auto) 0.2 %; Lymphocytes # (auto) 0.59 K/uL (1.2-3.4); Lymphocytes % (auto) 5.7 %; Mean Corpuscular Hemoglobin 32.6 pg (25-34); Mean Corpuscular Hgb Conc 33.6 g/dL (32-36); Mean Platelet Volume 10.3 fL (7.4-10.4); Monocytes # (auto) 0.51 K/uL (0.11-0.59); Monocytes % (auto) 4.9 %; Neutrophils # (auto) 9.16 K/uL (1.4-6.5); Neutrophils % (auto) 88.9 %; Platelet Count 158 K/uL (130-400); RDW Coefficient of Variation 12.9 % (11.5-14.5); White Blood Count 10.31 K/uL (4.8-10.8)
[2021-10-31] MEDS ORDERED: STAT IV STA (19:10)
[2021-10-31] MEDS ORDERED: SODIUM CHLORIDE 0.9% 10ML FLUSH IV STA (19:10)
[2021-10-31] MEDS ORDERED: No Aspirin within 24hrs of THROMBOLYTIC-Stroke PO SCH (19:15)
[2021-10-31] MEDS ORDERED: LABETALOL HCL IV 5 MG/ML 20ML IV ONE ×2 (19:18→19:33)
[2021-10-31 19:20] LABS: Partial Thromboplastin Time 25.5 Seconds (21.0-31.0); Prothrombin Time 10.5 Seconds (9.0-12.0)
[2021-10-31] MEDS ORDERED: TENECTEPLASE 24 MG in SYRINGE 0 ML IV ONE (19:20)
--- NOTE | 2021-10-31 19:28 | XRay Report ---
XR chest 1V portable HISTORY: 86 years-old Female Stroke Like Symptoms acute strokelike symptoms COMPARISON: Chest radiograph 06/11/2070 TECHNIQUE: Portable AP view of the chest FINDINGS: Cardiac silhouette is enlarged. Mild chronic interstitial coarsening. No pneumothorax, pleural effusi on, airspace consolidation or overt pulmonary edema. Degenerative changes of the shoulders and spine. IMPRESSION: Cardiomegaly without acute process. ACT 112: Negative or not required by law. The above report was generated using voice recognition software. It may contain grammatical, syntax o r spelling errors. Electronically signed by: Manuel Hernandez M.D. 10/31/2021 7:27 PM
[2021-10-31 19:30] LABS: Troponin I < 0.03 ng/ml (0-0.04)
[2021-10-31] MEDS ORDERED: LABETALOL HCL IV 5 MG/ML 20ML IV STA ×2 (19:31)
[2021-10-31 19:32] LABS: Alanine Aminotransferase 14 U/L (7-52); Albumin Globulin Ratio 1.7 (0.9-2); Albumin Level 4.2 gm/dl (3.4-5.0); Alkaline Phosphatase 58 U/L (34-104); Anion Gap 11 (3-11); Aspartate Aminotransferase 17 U/L (13-39); BUN Creatinine Ratio 20.2 (10-20); Bilirubin,Total 1.1 mg/dl (0.2-1.0); Blood Urea Nitrogen 17 mg/dl (6-23); Calcium 9.2 mg/dl (8.5-10.1); Carbon Dioxide 23 mmol/L (21-32); Chloride 106 mmol/L (98-107); Creatinine Clr Calc Pharmacy 57.9 ml/min; Est GFR (African American) 72.9 ml/min; Est GFR (Non-African American) 62.9 ml/min; Globulin 2.5 gm/dl (2.5-4.0); Glucose 132 mg/dl (70-99(Fasting)); Magnesium 1.9 mg/dl (1.7-2.4); Potassium 4.5 mmol/L (3.5-5.1); Sodium 140 mmol/L (136-145); Total Protein 6.7 gm/dl (6.0-8.3)
[2021-10-31] MEDS ORDERED: LORazepam 1 MG/2 ML VIAL IV STA (19:32)
[2021-10-31] MEDS ORDERED: LORazepam 2 MG/4 ML VIAL ONE (19:34)
[2021-10-31 19:41] LABS: Appearance Urine Clear (Clear); Bilirubin Urine Negative (Negative); Blood Urine Negative (Negative); Color Urine Yellow; Glucose Urine UA Negative (Negative); Ketones Urine 1+ (Negative); Leukocyte Esterase Urine Negative (Negative); Nitrite Urine Negative (Negative); Protein Urine Negative (Negative); Urobilinogen Urine Negative (Negative); pH Urine 8.5 (4.5-7.5)
--- NOTE | 2021-10-31 20:01 | History & Physical Report ---
Date of Service October 31, 2021 Assessment & Plan (1) Cerebrovascular accident: Plan: -Admitted to ICU status post TPA. -Head CT without contrast 24 hours s/p TPA administration to evaluate for hemorrhagic stroke conversion and/or with any neurological changes. -MRI, routine, tomorrow. -Echo in a.m. -CBC, BMP, HbA1c, PT/INR, lipid panel in a.m. -N.p.o. for now. -PT, OT, ST to evaluate in a.m. -Labetalol 10 mg every 15 IV as needed, defer to ICU for continued IV boluses versus drip, goal SBP < 180, DBP <100. -Avoid hypotension, hypoglycemia. -CTA of head and neck as above, no significant stenosis. -prevention measures: Start aspirin appropriate; statin therapy is appropriate, BP control. -Telemetry for 24 hours, evaluate for episodes of atrial fibrillation. (2) Atrial fibrillation: Plan: -Patient was not found to be in A. fib in ED. She is normal sinus rhythm, unknown when patient was last in atrial fibrillation. -Previous notes reveal the patient was first found to be in atrial fibrillation in June 2011. -Echo from August 2019 reveals ejection fraction 65%, normal small LV size and systolic function with no regional wall motion abnormalities. Borderline LVH. Grade 1 diastolic dysfunction of the left ventricle. Elevated LA pressures. -Rate controlled diltiazem, will continue this during hospitalization. -Not on chronic anticoagulation. -Follows with [facility] cardiology. -Has also had a history of Wenckebach. (3) Hypertension: Plan: -Reviewed review of record shows poorly controlled blood pressure, will likely need further medical optimization. (4) Hyperlipidemia: Plan: -Currently taking simvastatin 20 mg daily. -Change to high intensity statin, lipid panel evaluation in a.m. (5) Hypothyroidism: Plan: -Continue levothyroxine 100 mcg daily. (6) Anxiety: Plan: -Continue Lamictal and Remeron. History of Present Illness Chief Complaint: dizziness Primary Care Provider: Bhaskar Wall MD Patient is a 86-year-old female the past medical history of paroxysmal A. fibb rhythm controlled not on anticoagulation, HTN, HLD, and anxiety who presents today from home with dizziness and numbness of her lips since 3:45 PM. Patient initially decided to stay home and see if her symptoms would resolve, however they had not by 5:30 PM at which time she pressed her life alert bracelet. EMS brought patient to ED for further evaluation. Denies headache, confusion, chest pain, palpitations, nausea, vomiting, diarrhea. Denies hematuria, melena, hematochezia, recent surgery, Initial NIHSS in ED 2. (9:1, 10:1.) NIH scale upon my exam: 2 (3:1, 10:1) 1545: Patient began experiencing dizziness, lip numbness at home. 1730: Patient called EMS. 1756: Patient was evaluated in the ED, code stroke was called. 1906: CT is negative. Spoke with Dr. Sujit Loving telestroke who evaluated the patient. She states the patient is now developing right upper extremity ataxia. She recommends given the patient thrombolytics. TNKase will be ordered for the patient. 1940: Patient was hypertensive. Labetalol boluses given to the patient prior to administration of TNK to the blood pressure within range to push the TNK. TNK pushed. Allergies Allergy/AdvReac Type Severity Reaction Status Date / Time cephalexin Allergy Mild RASH Verified 10/31/21 18:35 lisinopril AdvReac Intermediate Cough Verified 10/31/21 18:35 prednisone AdvReac Intermediate psychosis Verified 10/31/21 18:35 sertraline AdvReac Mild Drowsy Verified 10/31/21 18:35 Home Medications Medication Instructions Recorded Confirmed Type lamotrigine 25 mg tablet (Lamictal) 25 mg PO HS 07/17/19 10/31/21 History levothyroxine 100 mcg tablet 100 mcg PO HS 07/17/19 10/31/21 History mirtazapine 15 mg tablet (Remeron) 15 mg PO HS 07/17/19 10/31/21 History simvastatin 20 mg tablet 20 mg PO HS 07/17/19 10/31/21 History trazodone 50 mg tablet 150 mg PO HS 07/17/19 10/31/21 History cyanocobalamin (vitamin B-12) 1,000 mcg PO HS 10/31/21 10/31/21 History 1,000 mcg tablet (Vitamin B-12) diltiazem HCl 180 mg 180 mg PO HS 10/31/21 10/31/21 History capsule,extended release 24 hr melatonin 5 mg tablet 5 mg PO HS PRN 10/31/21 10/31/21 History Past Med/Surg History Medical History (Updated 10/31/21 @ 21:37 by Beatrice Chin PA-C) Anxiety Atrial fibrillation episodic hx- follows with cardio (Dr. 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 Hooper) History of IBS Hyperlipidemia Hypertension Hypothyroidism Osteoarthritis Positional vertigo Tinnitus of right ear Surgical History History of colonoscopy History of esophagogastroduodenoscopy (EGD) History of knee surgery Left - 2020 History of tonsillectomy History of tooth extraction History of total abdominal hysterectomy and bilateral salpingo-oophorectomy Family History Son Family history of diabetes mellitus Grandfather (Paternal) Family history of diabetes mellitus Mother Hearing loss Father Heart disease Social History Smoking Status: Never smoker Second Hand Exposure: Yes (during AA meetings 40 years ago); Do You Dip or Chew Tobacco: No; 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, 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) Hx Substance Use: No Preferred Language: Serbian Communication Ability: Effective Visual Impairment: No Limitations Security Business Analyst Required: No Beliefs That Will Affect Care: None marital status: Current Living Situation: Spouse current occupational status: retired How many Children do You have: 4 Feels Safe at Home: Yes Safety Concerns: Feels Safe At This Time Assistive Devices: Cane and Glasses Review of Systems Review of Systems: Constitutional: No fever, sweats or chills Eyes: No diplopia, no worsening or blurred vision ENT: normal hearing, no trouble swallowing Respiratory: No cough, sputum, dyspnea at rest or on exertion Cardiovascular: Reports dizziness. No chest pain, tightness or palpitations Abdomen: No pain, nausea, vomiting, diarrhea or constipation Musculoskeletal: No joint pain, calf pain, swelling Neurologic: No weakness, numbness/tingling, or balance problems Psychiatric: No anxiety or depression Skin: No rash or itch Physical Exam Physical Exam: General: awake, alert, no apparent distress, Head: Normocephalic, atraumatic ENT: PERRL, EOMI, no pharyngeal exudate, mucous membranes moist Chest: Clear to auscultation, on room air, no adventitious breath sounds Cardiac: Regular rate and rhythm, no murmur, no JVD, normal peripheral pulses, good capillary refill Abdominal: NABS x 4 quadrants, soft, nontender to palpation, no rebound, guarding or tenderness Extremities: Normal inspection, no peripheral edema or erythema, calfs nontender to palpation Psych: Normal mood and affect Neuro: AAO x 3, strength intact bilaterally and rated 5/5, no motor deficits, speech is clear, no peripheral sensory deficits Skin: no rash or erythema NIHSS: 2 Results & Data Results & Data ([facility]) Vital Signs (Past 12 Hours) Vital Signs Temp Pulse Pulse Resp BP BP Pulse Ox 10/31/21 19:52 71 21 150/85 H 95 10/31/21 19:45 60 21 152/116 H 97 10/31/21 19:40 62 22 171/100 H 97 10/31/21 19:35 63 19 168/103 H 97 10/31/21 19:32 78 18 174/82 H 96 10/31/21 19:30 78 24 188/101 H 96 10/31/21 19:25 68 20 185/109 H 96 10/31/21 19:16 75 21 181/95 H 96 10/31/21 19:01 83 22 173/130 H 95 10/31/21 18:31 73 17 173/91 H 96 10/31/21 18:15 96 H 22 93 10/31/21 18:05 36.7 C 20 188/128 H 93 Laboratory Results Abnormal lab results 10/31/21 10/31/21 10/31/21 Range/Units 18:21 18:56 18:56 POC Hgb 16.3 H (12.0-16.0) g/dl POC Hct 48 H (37-47) % Neut # (Auto) 9.16 H (1.4-6.5) K/uL Lymph # (Auto) 0.59 L (1.2-3.4) K/uL POC Potassium 5.1 H (3.3-5.0) mmol/L POC BUN 23 H (7-18) mg/dl BUN/Creatinine Ratio 20.2 H (10-20) Glucose 132 H (70-99(Fasting)) mg/dl POC Glucose (other) 137 H (70-99) mg/dl Total Bilirubin 1.1 H (0.2-1.0) mg/dl Urine pH (4.5-7.5) Ur Specific [place] (1.000-1.030) Urine Ketones (Negative) 10/31/21 Range/Units 19:18 POC Hgb (12.0-16.0) g/dl POC Hct (37-47) % Neut # (Auto) (1.4-6.5) K/uL Lymph # (Auto) (1.2-3.4) K/uL POC Potassium (3.3-5.0) mmol/L POC BUN (7-18) mg/dl BUN/Creatinine Ratio (10-20) Glucose (70-99(Fasting)) mg/dl POC Glucose (other) (70-99) mg/dl Total Bilirubin (0.2-1.0) mg/dl Urine pH 8.5 H (4.5-7.5) Ur Specific [place] 1.040 H (1.000-1.030) Urine Ketones 1+ H (Negative) Diagnostic Findings Chest X-Ray 10/31/21 18:17 XR chest 1V portable HISTORY: 86 years-old Female Stroke Like Symptoms acute strokelike symptoms COMPARISON: Chest radiograph 06/11/2070 TECHNIQUE: Portable AP view of the chest FINDINGS: Cardiac silhouette is enlarged. Mild chronic interstitial coarsening. No pneumothorax, pleural effusion, airspace consolidation or overt pulmonary edema. Degenerative changes of the shoulders and spine. IMPRESSION: Cardiomegaly without acute process. ACT 112: Negative or not required by law. The above report was generated using voice recognition software. It may contain grammatical, syntax or spelling errors. Electronically signed by: Manuel Hernandez M.D. 10/31/2021 7:[address] 10/31/21 18:17 CT head/brain wo con CLINICAL HISTORY: 86 years-old Female with Stroke Like Symptoms. Acute strokelike symptoms TECHNIQUE: Multiple axial CT images of the head were obtained without contrast. A dose lowering technique was utilized adhering to the principles of ALARA. COMPARISON: CTA head and neck of same day FINDINGS: No acute intracranial hemorrhage, midline shift, intracranial mass, hydrocephalus, territorial ischemia or abnormal extra-axial collection. Age- related involutional changes. White matter hypodensities suggest chronic microvascular ischemic disease. Senescent calcifications of the lentiform nuclei. 6 mm hypodense focus of the left cerebellar hemisphere, image 9 series 2. Ill-defined 7 mm hypodensity of the left cerebral hemisphere on image 6. Millimeter hypodense focus of the right frontal lobe santizo radiata on image 17 series 2. Cerebral vascular calcifications. The calvarium is intact. Bilateral mastoid effusions. The paranasal sinuses are generally clear. Unremarkable soft tissues. Prior bilateral lens repair. IMPRESSION: 1. No acute intracranial hemorrhage, midline shift or acute territorial infarct. 2. Age-related involutional changes with chronic microvascular ischemic disease. 3. 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 ACT 112: Negative or not required by law. The above report was generated using voice recognition software. It may contain grammatical, syntax or spelling errors. Electronically signed by: Manuel Hernandez M.D. 10/31/2021 6:41 PM Head CTA 10/31/21 18:17 CT angio neck with con, CT angio head w con CLINICAL HISTORY: 86 years-old Female with Stroke Like Symptoms. Acute strokelike symptoms COMPARISON STUDY: Head CT of same day TECHNIQUE: Following the IV administration of 120 mL of Optiray, CT angiogram of the head and neck was performed from the aortic arch to the skull apex. Images are reviewed in the axial, sagittal, and coronal planes. 3-D MIPS images are created and assessed. IV contrast was administered without complication. All measurements were calculated based on NASCET criteria. A dose lowering technique was utilized adhering to the principles of ALARA. CT DOSE: 1601.89 mGy.cm FINDINGS: Three-vessel morphology of the thoracic arch. Atherosclerotic plaque head the origin of the left subclavian artery results in mild stenosis. The common carotid arteries are widely patent. There is mild atherosclerotic plaque of the carotid bulbs and proximal cervical segments of the internal carotid arteries without significant stenosis. The middle and anterior cerebral arteries appear patent. The vertebral arteries are codominant and patent. The basilar and posterior cerebral arteries appear patent. The cerebral venous sinuses appear patent. There is no abnormal intracranial enhancement. Lung apices appear clear. There is no pneumothorax identified. Unremarkable soft tissues of the neck. Degenerative changes of the spine. Bilateral mastoid effusions. IMPRESSION:Atherosclerotic vascular disease without aneurysm, dissection, high- grade stenosis or arterial occlusion. Neck CTA 10/31/21 18:17 CT angio neck with con, CT angio head w con CLINICAL HISTORY: 86 years-old Female with Stroke Like Symptoms. Acute strokelike symptoms COMPARISON STUDY: Head CT of same day TECHNIQUE: Following the IV administration of 120 mL of Optiray, CT angiogram of the head and neck was performed from the aortic arch to the skull apex. Images are reviewed in the axial, sagittal, and coronal planes. 3-D MIPS images are created and assessed. IV contrast was administered without complication. All measurements were calculated based on NASCET criteria. A dose lowering technique was utilized adhering to the principles of ALARA. CT DOSE: 1601.89 mGy.cm FINDINGS: Three-vessel morphology of the thoracic arch. Atherosclerotic plaque head the origin of the left subclavian artery results in mild stenosis. The common carotid arteries are widely patent. There is mild atherosclerotic plaque of the carotid bulbs and proximal cervical segments of the internal carotid arteries without significant stenosis. The middle and anterior cerebral arteries appear patent. The vertebral arteries are codominant and patent. The basilar and posterior cerebral arteries appear patent. The cerebral venous sinuses appear patent. There is no abnormal intracranial enhancement. Lung apices appear clear. There is no pneumothorax identified. Unremarkable soft tissues of the neck. Degenerative changes of the spine. Bilateral mastoid effusions. IMPRESSION:Atherosclerotic vascular disease without aneurysm, dissection, high- grade stenosis or arterial occlusion. Medications Administered Tenecteplase 24 mg/ Syringe 4.8 mls @ 57.6 mls/min IV NOW ONE; Protocol Stop: 10/31/21 19:21 Last Admin: 10/31/21 19:37 Dose: 57.6 mls/min Documented by: [id number] Cosigned by: [id number] Ioversol (Optiray 320 125ml) 120 ml IV ONCE ONE Stop: 10/31/21 18:35 Last Admin: 10/31/21 18:35 Dose: 120 ml Documented by: [id number] Labetalol HCl (Labetalol Hcl Iv 5 Mg/Ml 20ml) Confirm Administered Dose 10 mg IV .STK-MED ONE Stop: 10/31/21 19:19 Last Admin: 10/31/21 19:22 Dose: 10 mg Documented by: [id number] Cosigned by: [id number] Labetalol HCl (Labetalol Hcl Iv 5 Mg/Ml 20ml) 20 mg IV NOW STA Stop: 10/31/21 19:32 Last Admin: 10/31/21 19:36 Dose: 20 mg Documented by: [id number] Cosigned by: [id number] Sodium Chloride (Sodium Chloride 0.9% 10ml Flush) 20 ml IV NOW STA Stop: 10/31/21 19:11 Last Admin: 10/31/21 19:39 Dose: 20 ml Documented by: [id number] Additional Comments: Accelerated Junctional rhythm Left axis deviation Inferior infarct , age undetermined Anterior infarct , age undetermined Abnormal ECG When compared with ECG of 13-JUN-2017 06:26, Significant changes have occurred Code Status & VTE Plan Code Status Full code Supervising Physician Co-Signing Physician Notes Patient seen and examined, chart reviewed, I agree with the assessment and plan as documented above. In brief, Brianda Marshall is an 86yo female with poorly controlled HTN, HLP, PAF presenting with dizziness, lip numbness, dysarthria and weakness that started today at 15:45. She presented to [facility] as a stroke alert. Developed limb ataxia. After BP optimization with IV labetalol she was administered tenecteplase 24mg at 19:37. Improvement in symptoms Has been having nausea - given Zofran and Phenergan Neuro exam remains unchanged On exam she is afebrile, HD stable. BP has improved Skin - no bruising HEENT - NC/AT, PERRL, MMM, Neck supple Heart - +S1/S2, regular, no m/r/g Lungs - CTA Abd - +BS, soft, NT/ND Ext - warm, well perfused, no clubbing/cyanosis or edema Neuro - Patient AA&O x 3, speech is mildly dysarthric but appropriate, CN grossly intact, sensation to light touch intact, MS 5/5 in UE/LE bilaterally Labs and images reviewed. CT of head as well as CTA head and neck with no acute hemorrhage, no LVO. Atherosclerotic vascular disease present with chronic microvascular ischemic disease as well as chronic appearing lacunar infarct of the left cerebellar hemisphere as well as age indeterminant right frontal lobe santizo radiata and left cerebellar hemisphere lacunar infarcts Assessment/Plan 86yo female with poorly controlled HTN, HLP and PAF presenting with acute onset lip tingling, dysarthria and weakness s/p tPA administration in ER with improvement. Admitted to MICU for post-tPA monitoring Bleeding precautions BP control with IV Labetalol as needed Repeat CT head at 24hrs MRI, Echo, Lipids, AIC ordered BP control going forward Remainder as above PG Care Time/CCT Total # of Minutes Spent Total Time Spent with Patient: Total time spent is greater than 50% in coordination of care (as documented) at patient's floor/unit and/or counseling patient: Coding Level of Care Code 62291 Initial Inpt Care Lvl 3 Diagnoses Cerebrovascular accident I63.9 CVA mechanism: unspecified Atrial fibrillation I48.91 Atrial fibrillation type: unspecified Hypertension I10 Hyperlipidemia E78.5 Hypothyroidism E03.9 Anxiety F41.9 (1) Atrial fibrillation Atrial fibrillation type: unspecified Qualified Code(s): I48.91 - Unspecified atrial fibrillation (2) Cerebrovascular accident CVA mechanism: unspecified Qualified Code(s): I63.9 - Cerebral infarction, unspecified
[2021-10-31] MEDS ORDERED: LABETALOL HCL IV 5 MG/ML 20ML IV PRN (20:15)
[2021-10-31] MEDS ORDERED: PHARMACIST DISCHARGE MED REC CONSULT PRN (20:15)
[2021-10-31] MEDS ORDERED: ONDANSETRON INJ 2 MG/ML 2 ML VIAL ONE (21:21)
[2021-10-31] MEDS ORDERED: ONDANSETRON INJ 2 MG/ML 2 ML VIAL IV STA (21:28)
[2021-10-31] MEDS ORDERED: DEXTROSE 50% 50 ML SYRINGE IV PRN (21:34)
[2021-10-31] MEDS ORDERED: GLUCAGON FOR INJ 1 MG VIAL SQ PRN (21:34)
[2021-10-31] MEDS ORDERED: SIMVASTATIN 20 MG TAB PO SCH (21:34)
[2021-10-31] MEDS ORDERED: CARBOHYDRATES FOR HYPOGLYCEMIA PO PRN (21:34)
[2021-10-31] MEDS ORDERED: GLUCOSE 10 TABS/TUBE PO PRN (21:34)
[2021-10-31] MEDS ORDERED: ICU PROTOCOL FOR HYPERGLYCEMIA PRN (21:34)
[2021-10-31] MEDS ORDERED: GLUCOSE 40% GEL 15 GM TUBE PO PRN (21:34)
[2021-10-31] MEDS ORDERED: PROMETHAZINE HCL 12.5 MG in SODIUM CHLORIDE 0.9% 50 ML IV STA (22:24)
[2021-10-31] MEDS ORDERED: PROMETHAZINE 12.5 MG/50.5 ML NSS IV ONE (22:40)
[2021-10-31] MEDS: MIRTAZAPINE TAB 15 MG TAB PO SCH (23:05)
[2021-10-31] MEDS: dilTIAZem HCL 180 MG CAPCR PO SCH (23:05)
[2021-10-31] MEDS: LEVOTHYROXINE SODIUM 100 MCG TABLET PO SCH (23:05)
[2021-10-31] MEDS: lamoTRIgine 25 MG TAB PO SCH (23:05)
--- NOTE | 2021-10-31 23:29 | Critical Care Consultation ---
Date of Consultation October 31, 2021 Assessment & Plan (1) Cerebrovascular accident: Impression: 86-year-old male presents to the ICU following administration of TNKase for presumed CVA for 24-hour monitoring protocol. Neuro - Acute CVA?Patient presents with symptoms of dysarthria and dizziness with onset at 1530. Received TNKase at [address] [facility] telemetry stroke recommendations. -NIH of 2 -CT head, CTA head and neck negative for acute intracranial findings -Admitted to ICU for 24-hour monitoring protocol -Follow-up echo in a.m -Follow-up MRI -Neurology consulted, follow-up recommendations for aspirin/Plavix -Follow-up CT head 24 hours post TNKase administration -Frequent neuro exam per protocol Cardiac - Atrial fibrillationpatient with history of proximal A. fib, not anticoagulated -Was reported to be in A. fib on arrival to the ED. Currently in normal sinus rhythm on monitor -Continue p.o. diltiazem -History of Abdulkadir, follows with [facility] currently urology -Continuous monitoring on telemetry for now HLDcontinue statin HTNpatient initially hypertensive but responded to labetalol. Blood pressure currently within acceptable range. Monitor Respiratory - No history of pulmonary disease. Currently maintaining oxygen saturation on nasal cannula. No respiratory distress. Wean oxygen as tolerated GI - N.p.o. until cleared by speech RENAL/LYTES - Creatinine within normal limits and no severe electrolyte abnormalities. Monitor routine BMPs replete electrolytes as indicated - Strict I's and O's ENDO - Hypothyroidcontinue Synthroid HEME - H&H stable, monitor for signs for bleeding ID - No indication for infectious process at this time LINES/IV ACCESS - Peripheral IVs DVT PROPHYLAXIS - SCDs, hold anticoagulation following administration of TNKase I have personally spent 35 minutes of critical care time in the direct management of this patient. This is a life/limb threatening event. This includes time spent evaluating patient, direct bedside care, chart review, placing orders, interpretation of diagnostic studies, discussion with consultants, patient, and family members, as well as other required patient management activities. This time is exclusive of all separately billable procedures, and teaching time and separate from and in addition to any other critical care service time. Thank you for allowing us to participate in the care of this patient. Please refer to my attending physician's documentation for any further recommendations. (2) Atrial fibrillation: (3) Hyperlipidemia: (4) Hypertension: (5) Hypothyroidism: (6) Depression: (7) Anxiety: (8) Heart block AV second degree: History of Present Illness Attending Physician: Kimmie White DO History of Present Illness Patient is a 86-year-old female with history of proximal A. fib, HTN, HLD, anxiety disorder who presented to the emergency department after feeling dizzy and was having numbness in her lips and slurred speech at approximately 1545 this afternoon. Around 1730 patient pressed her life alert and she was brought into the emergency department by EMS. She was taken for CT head which was negative for acute intracranial findings. She was evaluated by [facility] telemetry neurologist who recommended administration of thrombolytic. Patient received TNKase at approximately 1930. She was taken for CTA head and neck which were negative for acute process. She is currently being admitted to the ICU for 24- hour post thrombolytic monitoring. Currently patient is alert and oriented and she does have mild dysarthria. She does report feeling dizzy earlier but currently is asymptomatic. She denies any headaches, syncope, recent illness or fevers, cough or sore throat, congestion, shortness of breath, chest pain or palpitations, nausea vomiting or diarrhea, or abdominal pain. Patient denies muscular weakness or asymmetry of strength, changes in vision, or numbness. Allergies Allergy/AdvReac Type Severity Reaction Status Date / Time cephalexin Allergy Mild RASH Verified 10/31/21 18:35 lisinopril AdvReac Intermediate Cough Verified 10/31/21 18:35 prednisone AdvReac Intermediate psychosis Verified 10/31/21 18:35 sertraline AdvReac Mild Drowsy Verified 10/31/21 18:35 Home Medications Medication Instructions Recorded Confirmed Type lamotrigine 25 mg tablet (Lamictal) 25 mg PO HS 07/17/19 10/31/21 History levothyroxine 100 mcg tablet 100 mcg PO HS 07/17/19 10/31/21 History mirtazapine 15 mg tablet (Remeron) 15 mg PO HS 07/17/19 10/31/21 History simvastatin 20 mg tablet 20 mg PO HS 07/17/19 10/31/21 History trazodone 50 mg tablet 150 mg PO HS 07/17/19 10/31/21 History cyanocobalamin (vitamin B-12) 1,000 mcg PO HS 10/31/21 10/31/21 History 1,000 mcg tablet (Vitamin B-12) diltiazem HCl 180 mg 180 mg PO HS 10/31/21 10/31/21 History capsule,extended release 24 hr melatonin 5 mg tablet 5 mg PO HS PRN 10/31/21 10/31/21 History Patient History Medical History (Updated 10/31/21 @ 21:37 by Beatrice Chin PA-C) Anxiety Atrial fibrillation episodic hx- follows with cardio (Dr. 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 Hooper) History of IBS Hyperlipidemia Hypertension Hypothyroidism Osteoarthritis Positional vertigo Tinnitus of right ear Surgical History History of colonoscopy History of esophagogastroduodenoscopy (EGD) History of knee surgery Left - 2020 History of tonsillectomy History of tooth extraction History of total abdominal hysterectomy and bilateral salpingo-oophorectomy Family History Son Family history of diabetes mellitus Grandfather (Paternal) Family history of diabetes mellitus Mother Hearing loss Father Heart disease Social History Smoking Status: Never smoker Second Hand Exposure: Yes (during AA meetings 40 years ago); 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, 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) Hx Substance Use: No Preferred Language: Polish Communication Ability: Effective Visual Impairment: No Limitations Maintenance Scheduler Required: No Beliefs That Will Affect Care: None marital status: Current Living Situation: Spouse current occupational status: retired How many Children do You have: 4 Feels Safe at Home: Yes Assistive Devices: Cane and Glasses Review of Systems Review of Systems: All systems reviewed & are unremarkable except as noted in HPI & below Physical Exam Constitutional: WD/WN, vitals as above cooperative and comfortable Eyes: PERRL, conjunctivae normal, anicteric sclerae ENMT: external ear and nose normal, oropharynx normal Neck: trachea midline, no thyromegaly Respiratory: normal respiratory effort, lungs clear to auscultation Cardiovascular: RRR, no murmur, no edema Heart Sounds: normal S1 and normal S2 Vessels: no JVD Extremities: no edema Gastrointestinal (Abdomen): normal bowel sounds, soft, nontender, no hepatosplenomegaly Musculoskeletal: no cyanosis or clubbing, extremities motor strength 5/5 Skin: no rashes, warm and dry Neurologic: PERRLA EOMs intact. No facial palsy. Dysarthria present. Psychiatric: A+Ox3, euthymic affect Results & Data Results & Data ([facility]) Vital Signs (Past 12 Hours) Vital Signs Temp Pulse Pulse Resp BP BP Pulse Ox 10/31/21 23:08 36.8 C 73 16 149/72 H 93 10/31/21 23:07 36.8 C 73 14 149/72 H 93 10/31/21 22:37 58 L 17 156/74 H 97 10/31/21 22:30 70 24 165/78 H 97 10/31/21 22:15 74 24 154/86 H 95 10/31/21 22:07 58 L 20 158/88 H 96 10/31/21 21:45 10/31/21 21:44 58 L 20 177/96 H 95 10/31/21 21:37 66 15 177/96 H 94 10/31/21 21:22 74 24 146/97 H 89 L 10/31/21 21:07 67 24 166/110 H 93 10/31/21 20:52 67 20 157/91 H 93 10/31/21 20:51 69 20 157/91 H 92 10/31/21 20:45 68 24 198/86 H 95 10/31/21 20:37 68 23 171/98 H 96 10/31/21 20:36 63 22 171/104 H 94 10/31/21 20:30 63 24 163/99 H 95 10/31/21 20:25 62 22 146/103 H 94 10/31/21 20:22 64 23 152/95 H 95 10/31/21 20:20 75 21 152/95 H 94 10/31/21 20:16 74 17 164/97 H 95 10/31/21 20:07 78 22 161/88 H 97 10/31/21 20:00 76 20 162/94 H 96 10/31/21 19:52 71 21 150/85 H 95 10/31/21 19:45 60 21 152/116 H 97 10/31/21 19:40 62 22 171/100 H 97 10/31/21 19:35 63 19 168/103 H 97 10/31/21 19:32 78 18 174/82 H 96 10/31/21 19:30 78 24 188/101 H 96 10/31/21 19:25 68 20 185/109 H 96 10/31/21 19:16 75 21 181/95 H 96 10/31/21 19:01 83 22 173/130 H 95 10/31/21 18:31 73 17 173/91 H 96 10/31/21 18:15 96 H 22 93 10/31/21 18:05 36.7 C 20 188/128 H 93 Pulse Ox 10/31/21 23:08 10/31/21 23:07 10/31/21 22:37 10/31/21 22:30 10/31/21 22:15 10/31/21 22:07 10/31/21 21:45 97 10/31/21 21:44 10/31/21 21:37 10/31/21 21:22 10/31/21 21:07 10/31/21 20:52 10/31/21 20:51 10/31/21 20:45 10/31/21 20:37 10/31/21 20:36 10/31/21 20:30 10/31/21 20:25 10/31/21 20:22 10/31/21 20:20 10/31/21 20:16 10/31/21 20:07 10/31/21 20:00 10/31/21 19:52 10/31/21 19:45 10/31/21 19:40 10/31/21 19:35 10/31/21 19:32 10/31/21 19:30 10/31/21 19:25 10/31/21 19:16 10/31/21 19:01 10/31/21 18:31 10/31/21 18:15 10/31/21 18:05 Coding Level of Care Code Critical Care 1st 30-74 mins Diagnoses Cerebrovascular accident I63.9 CVA mechanism: unspecified Atrial fibrillation I48.91 Atrial fibrillation type: unspecified Hyperlipidemia E78.5 Hypertension I10 Hypothyroidism E03.9 Depression F32.9 Anxiety F41.9 Heart block AV second degree I44.1 (1) Atrial fibrillation Atrial fibrillation type: unspecified Qualified Code(s): I48.91 - Unspecified atrial fibrillation (2) Cerebrovascular accident CVA mechanism: unspecified Qualified Code(s): I63.9 - Cerebral infarction, unspecified
[2021-11-01 05:50] LABS: Chol HDL Ratio 2.8 (0-5)
[2021-11-01] MEDS ORDERED: DOCUSATE SODIUM 100 MG CAP PO SCH (09:00)
[2021-11-01] MEDS ORDERED: FAMOTIDINE 20MG/5ML IV PUSH IV ONE (09:35)
[2021-11-01] MEDS: FAMOTIDINE 20 MG in SYRINGE 3 ML IV SCH (09:36)
--- NOTE | 2021-11-01 10:00 | Hospitalist Progress Note ---
Date of Service November 01, 2021 Assessment & Plan (1) Right pontine cerebrovascular accident: Plan: Brianda Marshall is an 86F presenting 10/31 with dizziness and lip numbness admitted due to concern for acute CVA. Presented 10/31 with dizziness & lip numbness. Last known well 1545 10/31. NIHSS 2 on arrival. Then developed RUE ataxia. TNKase given 10/31 1939. CTH 10/31: no acute hemorrhage or infarct. chronic microvascular ischemia. chronic/age-indeterminate lacunar infarct of L cerebellum, age indeterminate lacunar infarct of R frontal santizo radiata CTA H/N 10/31: atherosclerosis, no aneurysm/dissection/stenosis/occlusion MRI Brain: 9 mm acute infarct within the right aspect of the corry and several smaller acute infarcts within the right cerebellar hemisphere. Several old lacunar infarcts within the left cerebellar hemisphere Echo 11/01: LVEF 60-65%, mild MR/TR. No ASD. PFO not assessed. - Head CT without contrast 11/01 @ 1940 (24h s/p TPA) - PT, OT, ST to evaluate in a.m. - HTN control (goal <180/<100) - IV Labetalol PRN - Avoid hypotension, hypoglycemia. - Prevention measures Statin: switch simva 20 to rosuva 20 Await neuro recs re. initiating AC/antiplatelet (ASA, clopidogrel, AC). Likely not until >24h s/p TPA - Continue telemetry to monitor for Afib (2) Atrial fibrillation: Plan: H/o paroxysmal Afib (single episode 2010 per cardiology notes) not on chronic AC. 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 Follows with [facility] cardiology Dr Hooper Echo 08/2019: LVEF 65%, borderline LVH, G1DD, elevated LA pressures NSR on admission, although also report of Afib on arrival CHADSVASC 6 - Continue dilt 180mg qhs - Telemetry - Await neuro recs re. antiplatelet/AC plan. sourcing engineer AC warranted given Afib & CHADSVASC 6 (3) Hypertension: Plan: Poor outpatient control. Not on home meds other than diltiazem Last required labetalol 10/31 21:10 - Continue diltiazem 180mg for concomitant rate control - Plan to start losartan if BP remains elevated - not indicated at present given only mildly elevated BPs & desire to avoid hypotension/hypoperfusion s/o acute infarct - PRN labetalol (4) Hyperlipidemia: Plan: Home simvastatin 20 mg daily. Lipids 11/01 w/ LDL 74 - Start rosuvastatin 20 - Goal LDL<70 (5) Hypothyroidism: Plan: - Continue levothyroxine 100 mcg daily. (6) Anxiety: Plan: -Continue home Lamictal and Remeron. Admission and Anticipated Discharge Date Admission Date: October 31, 2021 Subjective Brianda Marshall is an 86F who presented 10/31 with dizziness and lip numbness admitted for acute CVA. PMH is notable for paroxysmal Afib (only one episode) not on AC, HTN, HLD, hypothyroidism, anxiety. Last known well 1545 10/31. NIHSS 2 on admission. Then developed RUE ataxia. TNKase given 1939. Today - Normotensive w/ controlled HR - O2 weaning down to 3LPM - AM labs unremarkable. Lipids w/ LDL 74 A1c pending - MRI Brain: 9 mm acute infarct within the right aspect of the corry and several smaller acute infarcts within the right cerebellar hemisphere. Several old la cunar infarcts within the left cerebellar hemisphere - Echo 11/01: LVEF 60-65%, mild MR/TR. No ASD. PFO not assessed. - No Afib on review of tele She notes improving dysarthria & R hand discoordination. Very slight feeling of weakness of R arm/leg. All improving. No GREEN blurry vision. Admission ECG w/ accelerated junctional rhythm CTH 10/31: no acute hemorrhage or infarct. chronic microvascular ischemia. chronic/age-indeterminate lacunar infarct of L cerebellum, age indeterminate lacunar infarct of R frontal santizo radiata CTA H/N 10/31: atherosclerosis, no aneurysm/dissection/stenosis/occlusion Review of Systems Review of Systems: No chest pain SOB choking No abdominal pain or nausea No GREEN or blurry vision No BM yet No dysuria/ woods in place Physical Exam Physical Exam: Neuro: Awake alert. Mild dysarthria. CN2-12 intact face symmetric EOMI. RUE strength preserved to MMT 4+/5. RLE 5/5. General: Well appearing, sitting up in bed comfortably CV: Normal rate, regular rhythm. No murmurs. Resp: Breathing comfortably on room air. Lungs clear to auscultation bilaterally. No wheezes, crackles, or rhonchi Abd: Soft, nontender Ext: Warm, well perfused. No edema. : woods in place Results & Data Results & Data ([facility]) Vital Signs (Past 12 Hours) Vital Signs Temp Pulse Pulse Resp BP BP Pulse Ox 11/01/21 08:37 98.4 F 63 18 134/77 96 11/01/21 07:37 98.4 F 64 18 126/68 94 11/01/21 06:38 67 14 117/61 94 11/01/21 05:38 65 14 119/64 95 11/01/21 04:38 77 14 112/59 L 92 11/01/21 03:38 98.2 F 78 14 121/77 95 11/01/21 03:08 98.2 F 62 14 122/66 97 11/01/21 02:38 98.2 F 68 14 130/74 95 11/01/21 02:08 98.2 F 66 14 125/73 93 11/01/21 01:38 65 14 136/78 94 11/01/21 01:08 66 14 112/80 96 11/01/21 00:38 98.2 F 72 14 138/76 95 11/01/21 00:08 98.2 F 66 16 139/71 92 10/31/21 23:38 60 14 129/74 92 10/31/21 23:08 98.2 F 73 16 149/72 H 93 10/31/21 23:07 98.2 F 73 14 149/72 H 93 10/31/21 22:37 58 L 17 156/74 H 97 10/31/21 22:30 70 24 165/78 H 97 10/31/21 22:15 74 24 154/86 H 95 10/31/21 22:07 58 L 20 158/88 H 96 PG Care Time/CCT Total # of Minutes Spent Total Time Spent with Patient: Total time spent is greater than 50% in coordination of care (as documented) at patient's floor/unit and/or counseling patient: Coding Level of Care Code 72202 Subseq Hosp Care Lvl 2 Diagnoses Atrial fibrillation I48.91 Atrial fibrillation type: unspecified Hypertension I10 Hyperlipidemia E78.5 Hypothyroidism E03.9 Anxiety F41.9 Right pontine cerebrovascular accident I63.50 (1) Atrial fibrillation Atrial fibrillation type: unspecified Qualified Code(s): I48.91 - Unspecified atrial fibrillation
[2021-11-01] MEDS ORDERED: GADOBUTROL 30ML VIAL IV ONE (10:19)
--- NOTE | 2021-11-01 10:44 | Magnetic Resonance Report ---
MRI OF THE BRAIN WITHOUT AND WITH IV CONTRAST CLINICAL HISTORY: stroke s/p TPA. Slurred speech. COMPARISON STUDY: Head CT and CTA of the head October 31, 2021. TECHNIQUE: Utilizing a 1.5 Jen magnet and dedicated coil, multiplanar, multiecho imaging of the br ain was performed pre and postcontrast administration. IV administration of 9 mL of Gadavist contras t was uneventful. FINDINGS: Several small foci of restricted diffusion are noted, including a 9 mm focus within the rig ht aspect of the corry on axial image 8 of 22 of the diffusion-weighted sequence. This is hypointense on the ADC sequence. In addition, there are few foci of restricted diffusion within the right cerebel lar hemisphere that measure up to 7 mm. There is no acute hemorrhage. There is no mass effect. Old la cunar infarcts within the left cerebellar hemisphere present. White matter T2 hyperintense foci sugge st small vessel disease. There is no intracranial mass or pathologic enhancement. Calvarial signal is within normal limits. Fluid within the bilateral mastoid air cells is noted. Orbits are unremarkable . There is no evidence for sinusitis. IMPRESSION: 1. 9 mm acute infarct within the right aspect of the corry and several smaller acute infarcts within t he right cerebellar hemisphere. No mass effect. No acute hemorrhage. 2. Several old lacunar infarcts within the left cerebellar hemisphere. 3. No intracranial mass or pathologic enhancement. ACT 112: Negative or not required by law. Electronically signed by: Jeremiah Bowens M.D. 11/01/2021 10:42 AM
--- NOTE | 2021-11-01 10:50 | XCELERA ---
[id number]
[2021-11-01 11:11] LABS: Hematocrit (blood only) 45.1 % (37-47); Hemoglobin 14.9 g/dL (12.0-16.0); Mean Corpuscular Hemoglobin 32.4 pg (25-34); Mean Platelet Volume 10.5 fL (7.4-10.4); Platelet Count 152 K/uL (130-400); RDW Coefficient of Variation 13.2 % (11.5-14.5); RDW Standard Deviation 47.4 fL (36.4-46.3); White Blood Count 10.06 K/uL (4.8-10.8)
[2021-11-01 11:36] LABS: INR 1.1 (0.9-1.1); Prothrombin Time 10.7 Seconds (9.0-12.0)
[2021-11-01 11:47] LABS: Albumin Level 3.9 gm/dl (3.4-5.0); BUN Creatinine Ratio 21.3 (10-20); Calcium 8.9 mg/dl (8.5-10.1); Creatinine Clr Calc Pharmacy 60.8 ml/min; Est GFR (African American) 77.4 ml/min; Est GFR (Non-African American) 66.8 ml/min; Phosphorus 4.2 mg/dl (2.5-4.9); Potassium 4.1 mmol/L (3.5-5.1)
--- NOTE | 2021-11-01 11:51 | Electrocardiogram Report ---
Test Reason : Blood Pressure : / mmHG Vent. Rate : 097 BPM Atrial Rate : 093 BPM P-R Int : 000 ms QRS Dur : 078 ms QT Int : 336 ms P-R-T Axes : 000 -62 022 degrees QTc Int : 426 ms Probable Sinus rhythm with 1st degree A-V block Left axis deviation Poor R wave progression, consider anterior NH vs. lead placement vs. LVH , age undetermined Abnormal ECG When compared with ECG of 13-JUN-2017 06:26, Significant changes have occurred Confirmed by Bhaskar Bolden ([id number]) on 11/01/2021 11:51:14 AM Referred By: REFERRED SELF Confirmed By:Bhaskar Bolden
[2021-11-01] MEDS: SENNA 8.6 MG TAB PO SCH (11:57)
--- NOTE | 2021-11-01 16:15 | Critical Care Progress Note ---
Date of Service November 01, 2021 Assessment & Plan (1) Cerebrovascular accident: Plan: Impression: 86-year-old male presents to the ICU following administration of TNKase for presumed CVA for 24-hour monitoring protocol. Neuro - Acute CVA?Patient presents with symptoms of dysarthria and dizziness with onset at 1530. Received TNKase at 1930 Per [facility] telemetry stroke recommendations. -NIH of 2 -CT head, CTA head and neck negative for acute intracranial findings -Admitted to ICU for 24-hour monitoring protocol -echo unremarkable -MRI brain with a 9 mm acute infarct within the right aspect of the corry and several smaller acute infarcts within the right cerebellar hemisphere. Several old lacunar infarcts noted in the left cerebellar hemisphere. -Neurology consulted, follow-up recommendations for aspirin/Plavix -Follow-up CT head 24 hours post TNKase administration -Frequent neuro exam per protocol Cardiac - Atrial fibrillationpatient with history of proximal A. fib, not anticoagulated -Was reported to be in A. fib on arrival to the ED. Currently in normal sinus rhythm on monitor -Continue p.o. diltiazem -History of Abdulkadir, follows with [facility] -Continuous monitoring on telemetry for now HLDcontinue statin HTNpatient initially hypertensive but responded to labetalol. Blood pressure currently within acceptable range. Monitor Respiratory - No history of pulmonary disease. Currently maintaining oxygen saturation on nasal cannula. No respiratory distress. Wean oxygen as tolerated GI - Diet per speech RENAL/LYTES - Creatinine within normal limits and no severe electrolyte abnormalities. Monitor routine BMPs replete electrolytes as indicated - Strict I's and O's ENDO - Hypothyroidcontinue Synthroid HEME - H&H stable, monitor for signs for bleeding ID - No indication for infectious process at this time LINES/IV ACCESS - Peripheral IVs DVT PROPHYLAXIS - SCDs, hold anticoagulation following administration of TNKase Stable for downgrade from ICU status (2) Atrial fibrillation: (3) Hyperlipidemia: (4) Hypertension: (5) Hypothyroidism: (6) Depression: (7) Anxiety: (8) Heart block AV second degree: Admission and Anticipated Discharge Date Admission Date: October 31, 2021 Subjective Patient notes some difficulty with slurred speech and weakness in her right hand. Otherwise no further dizziness today. Review of Systems Review of Systems: All systems reviewed & are unremarkable except as noted in HPI & below Physical Exam Constitutional: WD/WN, vitals as above cooperative and comfortable Eyes: PERRL, conjunctivae normal, anicteric sclerae ENMT: external ear and nose normal, oropharynx normal Neck: trachea midline, no thyromegaly Respiratory: normal respiratory effort, lungs clear to auscultation Cardiovascular: RRR, no murmur, no edema Heart Sounds: normal S1 and normal S2 Vessels: no JVD Extremities: no edema Gastrointestinal (Abdomen): normal bowel sounds, soft, nontender, no hepatosplenomegaly Musculoskeletal: no cyanosis or clubbing, extremities motor strength 5/5 Skin: no rashes, warm and dry Neurologic: PERRLA EOMs intact. No facial palsy. Dysarthria present. Psychiatric: A+Ox3, euthymic affect Results & Data Results & Data ([facility]) Vital Signs (Past 12 Hours) Vital Signs Temp Pulse Resp BP Pulse Ox 11/01/21 15:37 36.6 C 73 18 160/86 H 93 11/01/21 14:38 36.8 C 67 18 117/75 94 11/01/21 13:37 36.8 C 65 18 147/81 H 95 11/01/21 12:37 36.9 C 81 18 125/71 96 11/01/21 11:37 36.9 C 68 16 138/76 96 11/01/21 10:37 37 C 88 18 141/85 H 94 11/01/21 09:37 36.8 C 69 16 130/70 95 11/01/21 08:37 36.9 C 63 18 134/77 96 11/01/21 07:37 36.9 C 64 18 126/68 94 11/01/21 06:38 67 14 117/61 94 11/01/21 05:38 65 14 119/64 95 11/01/21 04:38 77 14 112/59 L 92 Coding Level of Care Code 87303 Subseq Hosp Care Lvl 2 Diagnoses Cerebrovascular accident I63.9 CVA mechanism: unspecified Atrial fibrillation I48.91 Atrial fibrillation type: unspecified Hyperlipidemia E78.5 Hypertension I10 Hypothyroidism E03.9 Depression F32.9 Anxiety F41.9 Heart block AV second degree I44.1 (1) Cerebrovascular accident CVA mechanism: unspecified Qualified Code(s): I63.9 - Cerebral infarction, unspecified (2) Atrial fibrillation Atrial fibrillation type: unspecified Qualified Code(s): I48.91 - Unspecified atrial fibrillation
--- NOTE | 2021-11-01 20:08 | CT Scan Report ---
CT OF THE HEAD WITHOUT CONTRAST CLINICAL HISTORY: eval for hemorrhagic conversion 24 hours s/p TPA COMPARISON STUDY: Head CT and CTA of the head October 31, 2021. MRI of the brain performed earlier t marciano. CT DOSE: 884.08 mGy.cm TECHNIQUE: Helical axial images of the head were obtained without IV contrast. Automated exposure con trol was utilized for the study. A dose lowering technique was utilized adhering to the principles o f ALARA. FINDINGS: No acute intracranial hemorrhage, midline shift or mass effect is present. The small acute infarcts within the right aspect of the corry and right cerebellar hemisphere on MRI are not evident o n this exam due to CT technique. Several old infarcts are again noted. Ventricular system is unremark able. Basal cisterns are patent. White matter hypodensity suggests small vessel disease. Fluid within the bilateral mastoid air cells is again noted. There is no acute calvarial fracture IMPRESSION: 1. No acute intracranial hemorrhage or mass effect. 2. Small acute infarcts within the right aspect of the corry and right cerebellar hemisphere on MRI ar e not evident on this study due to CT technique. No evidence for hemorrhagic conversion. No mass effe ct. ACT 112: Negative or not required by law. Electronically signed by: Jeremiah Bowens M.D. 11/01/2021 8:06 PM
[2021-11-01] MEDS: MELATONIN 3 MG TAB PO PRN (21:09)
[2021-11-01] MEDS: traZODone HCL 100 MG TAB PO PRN (21:10)
[2021-11-01] MEDS: ROSUVASTATIN CALCIUM 20 MG TAB PO SCH (21:11)
[2021-11-01] MEDS: dilTIAZem HCL 180 MG CAPCR PO SCH (21:12)
[2021-11-01] MEDS: MIRTAZAPINE TAB 15 MG TAB PO SCH (21:12)
[2021-11-01] MEDS: lamoTRIgine 25 MG TAB PO SCH (21:12)
[2021-11-01] MEDS: HEPARIN SOD 5,000 UNIT/0.5 ML VIAL SQ SCH (21:12)
[2021-11-01] MEDS: LEVOTHYROXINE SODIUM 100 MCG TABLET PO SCH (21:12)
[2021-11-02 07:41] LABS: Estimated Average Glucose 120 mg/dl; Hemoglobin A1C 5.8 % (4.5-5.6)
--- NOTE | 2021-11-02 08:43 | Neurology Consultation ---
Date of Consultation November 02, 2021 Assessment & Plan (1) Cerebellar stroke, acute: (2) Right pontine cerebrovascular accident: (3) Hypertension: (4) Heart block AV second degree: (5) Atrial fibrillation: this patient had the acute onset of small right pontine and right cerebellar ( 2) strokes October 31. This has resulted in some mild dysarthria, very mild left facial asymmetry, and right upper extremity ataxia in weakness. Her deficits are very mild currently , and she is improving. The etiology of these strokes is likely small vessel ischemic although embolic cannot entirely be excluded. There is a remote history of atrial fibrillation but I am not convinced she has had any rhythms that would result in emboli. Her echocardiogram was unremarkable also. CT angiography of the head neck showed no significant stenoses or vessel anomalies however there was some mild atherosclerosis diffusely throughout. The patient presented with severe hypertension controlled with medication currently. hypertension would be a big risk factor for ischemic stroke. Recommendations: 1. 81 mg aspirin tablet daily. I see no need for to antiplatelet medications at this time, therefore, discontinue clopidogrel. 2. I am not certain this patient needs an anticoagulant. I would double check with cardiology to see if her rhythm would support that (otherwise I would just remain on 81 mg aspirin alone). 3. Control blood pressure as you are doing, aiming for a mean arterial pressure of approximately 95-100. avoid over-correction 4. this patient should continue rosuvastatin 20 mg daily. She is not a high dose statin candidate given her age 5. increase activity and consider physical, occupational, and speech therapy consults. Overall, I spent a total of 100 minutes with this case including review of records, review of MRI films, direct evaluation the patient at bedside, and discussion of the case with the patient and RN at bedside and Dr. robledo, including differential diagnosis and treatment options. History of Present Illness Reason for Consultation: Patient is an 86-year-old, who I was asked to see at the request of Dr. Clements, for neurologic consultation regarding stroke. Requesting Physician: Dr. Clements Attending Physician: Garrick Clements MD History of Present Illness this patient has a remote history of atrial fibrillation 10 years ago noted during a chemical stress test. She has not had atrial fibrillation since , as far she is aware. Patient does not remember any history of stroke, hypertension, or diabetes, but did have dyslipidemia , on simvastatin 20 mg daily. She was in her usual state of health when on October 31 around 3:30 p.m., well doing needle work, she had the sudden onset of lightheadedness. She felt like she might faint but never did actually pass out. She did not have vertigo. Her speech was affected and she had numbness around her lips. She noted that her right upper extremity was clumsy and was moving by itself. She arrived to the emergency room October 31 at 6:05 p.m. with a temperature of 36.7, pulse 96 and regular, respiratory 20, blood pressure 188/128, and O2 sat 93%. She was given an NIH stroke scale of 2 but the right upper extremity ataxia was a little bit worse. She ended up getting TNKase at the advice of her she tells stroke. Prior to this her blood pressure was more controlled with medication. CBC and Chem profile were largely unremarkable although a glucose was 132. Urinalysis was unremarkable and since admission she has not been in atrial fibrillation. Her blood pressure has been more controlled. Chest x-ray showed cardiomegaly without acute changes. CT scan of the head showed old left cerebellar and right frontal lacunar type infarct. CT angiography of the head neck were unremarkable. Echocardiogram was unremarkable. MRI of the brain showed a 9 mm right pontine acute stroke. There was smaller right cerebellar acute strokes. There was an old left cerebellar stroke and in general there was mild generalized atrophy and small vessel ischemia. Repeat CT scan of the head yesterday was unremarkable. Currently blood pressure is 127/50 with pulse in 50s and regular. She is afebrile. Triglycerides are 55 and total cholesterol 131. hemoglobin A1c is still pending. Currently she has ataxia and perhaps a little weakness of the right upper extremity. Her speech is somewhat dysarthric and she has no further numbness an d tingling around her lips. She is not dizzy or lightheaded. She has no vision issues or swallowing problems. This is a very mild frontal headache. She has no symptoms in the right lower extremity or left side. Allergies Allergy/AdvReac Type Severity Reaction Status Date / Time cephalexin Allergy Mild RASH Verified 10/31/21 18:35 lisinopril AdvReac Intermediate Cough Verified 10/31/21 18:35 prednisone AdvReac Intermediate psychosis Verified 10/31/21 18:35 sertraline AdvReac Mild Drowsy Verified 10/31/21 18:35 Home Medications Medication Instructions Recorded Confirmed Type lamotrigine 25 mg tablet (Lamictal) 25 mg PO HS 07/17/19 10/31/21 History levothyroxine 100 mcg tablet 100 mcg PO HS 07/17/19 10/31/21 History mirtazapine 15 mg tablet (Remeron) 15 mg PO HS 07/17/19 10/31/21 History simvastatin 20 mg tablet 20 mg PO HS 07/17/19 10/31/21 History trazodone 50 mg tablet 150 mg PO HS 07/17/19 10/31/21 History cyanocobalamin (vitamin B-12) 1,000 mcg PO HS 10/31/21 10/31/21 History 1,000 mcg tablet (Vitamin B-12) diltiazem HCl 180 mg 180 mg PO HS 10/31/21 10/31/21 History capsule,extended release 24 hr melatonin 5 mg tablet 5 mg PO HS PRN 10/31/21 10/31/21 History Patient History Medical History Anxiety Atrial fibrillation episodic hx- follows with cardio (Dr. 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 Hooper) History of IBS Hyperlipidemia Hypertension Hypothyroidism Osteoarthritis Positional vertigo Tinnitus of right ear Surgical History History of colonoscopy History of esophagogastroduodenoscopy (EGD) History of knee surgery Left - 2020 History of tonsillectomy History of tooth extraction History of total abdominal hysterectomy and bilateral salpingo-oophorectomy Family History Son Family history of diabetes mellitus Grandfather (Paternal) Family history of diabetes mellitus Mother , age 95 without significant medical problems Hearing loss Father , age 77 of heart issues Heart disease Social History (Updated 11/02/21 @ 08:32 by Brandyn Willis MD) Smoking Status: Never smoker Second Hand Exposure: Yes (during AA meetings 40 years ago); 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, 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) Hx Substance Use: No Preferred Language: Occitan Communication Ability: Effective Visual Impairment: No Limitations Vehicle Insurance Agent Required: No Beliefs That Will Affect Care: None marital status: Current Living Situation: Spouse current occupational status: retired current occupation: retired drug and alcohol counselor How many Children do You have: 4 Feels Safe at Home: Yes Assistive Devices: Oxygen - Continuous Review of Systems Constitutional: no fever, no fatigue and no weakness Eyes: no diplopia, no eye pain and no worsening vision Ear, Nose, Mouth, Throat: no ear pain, no tinnitus, no hearing loss, no dizziness, no snoring, no hoarseness and no dysphagia Respiratory: no cough and no dyspnea Cardiovascular: no chest pain, no palpitations and no lightheadedness Gastrointestinal: no abdominal pain, no nausea and no vomiting Genitourinary: no dysuria, no urinary frequency and no urinary incontinence Musculoskeletal: no back pain, no neck pain, no radicular pain, no joint pain and no myalgia Integumentary: no rash and no lesions Neurologic: + localized weakness, + lack of coordination, + abnormal movements, + headache(s) and + abnormal speech; no gait abnormality, no generalized weakness, no tingling, no numbness, no tremor(s), no confusion and no memory loss Psychiatric: no depression, no irritability, no anxiety, no difficulty concentrating, no confusion and no hallucinations Endocrine: no fatigue and no flushing Hematologic / Lymphatic: no easy bleeding and no easy bruising Allergy / Immunological: no urticaria and no problem reported Exam (Neuro) Physical Exam: The patient is right-handed. The patient is awake, alert, and attentive. Speech has mild dysarthria but no aphasia specifically. The patient can name objects, repeat phrases, and has normal spontaneous speech. Mentation and thought processes are intact, with orientation to person, place and time, and normal fund of knowledge. Attention and concentration are normal. Mood and affect are normal and appropriate. General appearance and grooming are normal. Short and long-term memory are int act to conversation. The discs are sharp with positive venous pulsations bilaterally. There are no exudates, hemorrhages, or blood vessel changes seen. Pupils are 3 mm bilaterally and reactive to light. Extraocular eye muscles are intact without nystagmus. Visual acuity and visual duong seem normal grossly to confrontation. There are no deficits to sensation in the face in all 3 distributions of the fifth cranial nerve bilaterally. Corneal reflexes are positive bilaterally. there is mild facial asymmetry with a droop noted with smile on the left compared to the right. Hearing seems normal bilaterally. Palate moves well without asymmetry. There is normal sternocleidomastoid and trapezius (shoulder shrug) strength bilaterally. Tongue is midline with good strength bilaterally. Neck has a full range of motion without discomfort. There are no cervical bruits bilaterally. There are no cranial or ocular bruits. Heart is without murmur. There is a regular rhythm and rate. Cervical, thoracic, and lumbar spine are nontender to palpation. Gait is not tested and stance sitting up in bed is somewhat poor With outstretched arms there is very mild drift on the right but not the left. There are no resting, postural, or action tremors. There is ataxia with finger to nose testing on the right. There is decreased facility in the right hand. No other abnormal involuntary movements are noted. Motor strength is 5/5 diffusely in the left upper extremity including deltoids, biceps, triceps, brachioradialis, wrist flexors and extensors, university extension specialist, and intrinsic hand muscles. in the right upper extremity strength is slightly decreased compared to the same muscles on the left. Motor strength is 5/5 diffusely in the legs bilaterally including hip flexors, quadriceps, hamstrings, gastrocnemius, tibialis anterior, tibialis posterior, and Peroneii muscles. Toe extensors are normal and there is good bulk in the extensor digitorum brevis muscles bilaterally. The limbs have good tone without rigidity or spasticity. There is no atrophy noted in the muscles. Muscle bulk is normal, there is no tenderness to palpation, no myotonia to percussion, and no fasciculations seen. Sensory examination is intact to touch and pin throughout all 4 limbs diffusely. Reflexes are 2/4 in the biceps, triceps, brachioradialis, quadriceps, and Achilles tendons bilaterally. There is no clonus bilaterally. Toes are equivocal with plantar stimulation bilaterally. Peripheral pulses are present and of normal quality distally in all 4 limbs. There is no peripheral edema noted in the limbs. Results & Data ([facility]) Vital Signs (Past 12 Hours) Vital Signs Temp Pulse Resp BP Pulse Ox 11/02/21 04:00 51 L 18 127/50 L 92 11/02/21 03:58 61 11/01/21 23:44 36.4 C L 64 17 143/71 H 99 PG Care Time/CCT Total # of Minutes Spent Total Time Spent with Patient: Total time spent is greater than 50% in coordination of care (as documented) at patient's floor/unit and/or counseling patient: Coding Level of Care Code 86485 Initial Inpt Care Lvl 3 Diagnoses Cerebellar stroke, acute I63.9 Right pontine cerebrovascular accident I63.50 Hypertension I10 Heart block AV second degree I44.1 Atrial fibrillation I48.91 Atrial fibrillation type: unspecified Time Spent (min) 100 Comment Add modifiers as able (1) Atrial fibrillation Atrial fibrillation type: unspecified Qualified Code(s): I48.91 - Unspecified atrial fibrillation
[2021-11-02] MEDS ORDERED: CLOPIDOGREL BISULFATE 75 MG TAB PO SCH (09:00)
[2021-11-02] MEDS: SENNA 8.6 MG TAB PO SCH (09:34)
[2021-11-02] MEDS: HEPARIN SOD 5,000 UNIT/0.5 ML VIAL SQ SCH (09:34)
[2021-11-02] MEDS: ASPIRIN 81 MG ECTAB PO SCH (09:34)
[2021-11-02] MEDS: FAMOTIDINE 20 MG in SYRINGE 3 ML IV SCH (10:39)
--- NOTE | 2021-11-02 12:45 | Hospitalist Progress Note ---
Date of Service November 02, 2021 Assessment & Plan (1) Right pontine cerebrovascular accident: Plan: Brianda Marshall is an 86F presenting 10/31 with dizziness and lip numbness admitted due to concern for acute CVA. Presented 10/31 with dizziness & lip numbness. Last known well 1545 10/31. NIHSS 2 on arrival. Then developed RUE ataxia. TNKase given 10/31 1939. CTH 10/31: no acute hemorrhage or infarct. chronic microvascular ischemia. chronic/age-indeterminate lacunar infarct of L cerebellum, age indeterminate lacunar infarct of R frontal santizo radiata CTA H/N 10/31: atherosclerosis, no aneurysm/dissection/stenosis/occlusion MRI Brain: 9 mm acute infarct within the right aspect of the corry and several smaller acute infarcts within the right cerebellar hemisphere. Several old lacunar infarcts within the left cerebellar hemisphere Echo 11/01: LVEF 60-65%, mild MR/TR. No ASD. PFO not assessed. - Repeat CT head @ 24 hours without hemorrhagic conversion - BP appears well controlled on her usual diltiazem - will reduce dose to avoid hypotension - Prevention measures Statin: switch simvastatin 20 to rosuvatatin 20mg PO daily. LDL [address] Willis (recommending aspirin alone, defer anticoagulation to cardiology), no atrial fibrillation on monitor and no mention of this in H&P or ER note, discussed with Dr Hooper however and recommended starting anticoagulation for prior isolated history and now strokes seen in more than one vessel distribution. Usually would start 4-14 days after CVA and since TNK given and no current a. fib will elect for around 7 days after CVA to start Eliquis. - Continue telemetry to monitor for Afib - Will be medically stable for discharge tomorrow assuming no new symptoms but PT recommending inpatient rehabilitation (2) Atrial fibrillation: Plan: H/o paroxysmal Afib (single episode 2010 per cardiology notes) not on chronic AC. 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 Follows with [facility] cardiology Dr Hooper Echo 08/2019: LVEF 65%, borderline LVH, G1DD, elevated LA pressures NSR on admission, although also report of Afib on arrival CHADSVASC 6 - Reduce dilt 120mg qhs to avoid relative hypotension - Telemetry - start Eliquis 7 days after CVA as above (3) Hypertension: Plan: Poor outpatient control. Not on home meds other than diltiazem Last required labetalol 10/31 21:10 - Reduce diltiazem as above (4) Hyperlipidemia: Plan: Lipids 11/01 w/ LDL 74 - Start rosuvastatin 20 - Goal LDL<70 (5) Hypothyroidism: Plan: - Continue levothyroxine 100 mcg daily. (6) Anxiety: Plan: -Continue home Lamictal and Remeron. Plan: VTE Prophylaxis - Lovenox 40mg SQ daily Diet - heart healthy, aspiration precautions, cut meats Disposition - continued stay on telemetry 48 hours s/p TNK, medically stable beyond this time awaiting placement Admission and Anticipated Discharge Date Admission Date: October 31, 2021 Subjective Patient reports improved symptoms since admission. Still having some difficulty with her speech. No dizziness or lightheadedness. Eating and drinking well with no swallowing problems. Bowel movement yesterday. Physical therapy recommending rehabilitation. Review of Systems Review of Systems: All systems reviewed & are unremarkable except as noted in HPI & below Physical Exam Constitutional: WD/WN, vitals as above Results & Data Results & Data ([facility]) Vital Signs (Past 12 Hours) Vital Signs Temp Pulse Pulse Resp BP BP Pulse Ox 11/02/21 12:22 36.9 C 63 22 124/67 93 11/02/21 10:00 36.6 C 82 18 149/83 H 97 11/02/21 04:00 51 L 18 127/50 L 92 11/02/21 03:58 61 PG Care Time/CCT Total # of Minutes Spent Total Time Spent with Patient: Total time spent is greater than 50% in coordination of care (as documented) at patient's floor/unit and/or counseling patient: Coding Level of Care Code 95825 Subseq Hosp Care Lvl 3 Diagnoses Right pontine cerebrovascular accident I63.50 Atrial fibrillation I48.91 Atrial fibrillation type: unspecified Hypertension I10 Hyperlipidemia E78.5 Hypothyroidism E03.9 Anxiety F41.9 (1) Atrial fibrillation Atrial fibrillation type: unspecified Qualified Code(s): I48.91 - Unspecified atrial fibrillation
[2021-11-02] MEDS: MIRTAZAPINE TAB 15 MG TAB PO SCH (20:32)
[2021-11-02] MEDS: lamoTRIgine 25 MG TAB PO SCH (20:32)
[2021-11-02] MEDS: dilTIAZem HCL 120 MG CAPCR PO SCH (20:32)
[2021-11-02] MEDS: ROSUVASTATIN CALCIUM 20 MG TAB PO SCH (20:33)
[2021-11-02] MEDS: traZODone HCL 100 MG TAB PO PRN (20:34)
[2021-11-02] MEDS: MELATONIN 3 MG TAB PO PRN (20:35)
[2021-11-02] MEDS: LEVOTHYROXINE SODIUM 100 MCG TABLET PO SCH (20:38)
[2021-11-02] MEDS: ENOXAPARIN INJ 40 MG/0.4 ML SYR SQ SCH (22:12)
[2021-11-03] MEDS: ASPIRIN 81 MG ECTAB PO SCH (09:17)
[2021-11-03] MEDS: SENNA 8.6 MG TAB PO SCH (09:18)
[2021-11-03] MEDS ORDERED: NYSTATIN POWDER 15GM BTL EXT PRN (11:15)
--- NOTE | 2021-11-03 15:10 | Neurology Progress Note ---
Date of Service November 03, 2021 Assessment & Plan (1) Cerebellar stroke, acute: (2) Right pontine cerebrovascular accident: (3) Hypertension: (4) Heart block AV second degree: (5) Atrial fibrillation: Plan: this patient had the acute onset of small right pontine and right cerebellar ( 2) strokes October 31. This has resulted in some mild dysarthria, very mild left facial asymmetry, and right upper extremity ataxia in weakness. Today, Her deficits are very mild currently , and she is improving. The etiology of these strokes is likely small vessel ischemic although embolic cannot entirely be excluded. There is a remote history of atrial fibrillation but I am not convinced she has had any rhythms that would result in emboli. She has been no atrial fibrillation while in the hospital. Her echocardiogram was unremarkable also. CT angiography of the head neck showed no significant stenoses or vessel anomalies however there was some mild atherosclerosis diffusely throughout. The patient presented with severe hypertension , but better controlled with medication currently. hypertension would be a big risk factor for ischemic stroke. Recommendations: 1. continue 81 mg aspirin tablet daily. remain off clopidogrel for now. 2. I am not certain this patient needs an anticoagulant. I would double check with cardiology to see if her rhythm would support that (otherwise I would just remain on 81 mg aspirin alone). 3. Control blood pressure as you are doing, aiming for a mean arterial pressure of approximately 95-100. avoid over-correction 4. continue rosuvastatin 20 mg daily. She is not a high dose statin candidate given her age 5. increase activity and consider physical, occupational, and speech therapy consults. Overall, I spent a total of 35 minutes with this case including review of records, direct evaluation the patient at bedside, and discussion of the case with the patient , her , and RN at bedside, including differential diagnosis and treatment options. Admission and Anticipated Discharge Date Admission Date: October 31, 2021 Subjective patient feels fairly well with no pain or headache. She feels that her hand is somewhat better than yesterday but it is still weak and clumsy. She feels her leg does not have any issue. Her vision is unremarkable and her speech is somewhat improved. Blood pressure is 156/99 Monitoring reports no atrial fibrillation. Results & Data ([facility]) Vital Signs (Past 12 Hours) Vital Signs Temp Pulse Pulse Resp BP Pulse Ox 11/03/21 14:49 36.4 C L 74 20 156/90 H 92 11/03/21 09:45 68 11/03/21 08:20 36.3 C L 61 18 167/87 H 94 11/03/21 03:07 36.3 C L 56 L 16 135/71 90 Exam (Neuro) Physical Exam: she is awake and alert. Speech is without obvious aphasia or dysarthria. Mood is normal and affect is appropriate. Thought processes are intact to conversation. Extraocular eye muscles were intact without nystagmus. There is still a little bit of left facial asymmetry compared to the right. There is some mild ataxia and weakness with clumsiness of the hand in the right upper extremity. Left arm and both legs were unremarkable. PG Care Time/CCT Total # of Minutes Spent Total Time Spent with Patient: Total time spent is greater than 50% in coordination of care (as documented) at patient's floor/unit and/or counseling patient: Coding Level of Care Code 90631 Subseq Hosp Care Lvl 3 Diagnoses Cerebellar stroke, acute I63.9 Right pontine cerebrovascular accident I63.50 Hypertension I10 Heart block AV second degree I44.1 Atrial fibrillation I48.91 Atrial fibrillation type: unspecified (1) Atrial fibrillation Atrial fibrillation type: unspecified Qualified Code(s): I48.91 - Unspecified atrial fibrillation
--- NOTE | 2021-11-03 16:43 | Hospitalist Progress Note ---
Date of Service November 03, 2021 Assessment & Plan (1) Right pontine cerebrovascular accident: Plan: Brianda Marshall is an 86F presenting 10/31 with dizziness and lip numbness admitted due to concern for acute CVA. Presented 10/31 with dizziness & lip numbness. Last known well 1545 10/31. NIHSS 2 on arrival. Then developed RUE ataxia. TNKase given 10/31 1939. CTH 10/31: no acute hemorrhage or infarct. chronic microvascular ischemia. chronic/age-indeterminate lacunar infarct of L cerebellum, age indeterminate lacunar infarct of R frontal santizo radiata CTA H/N 10/31: atherosclerosis, no aneurysm/dissection/stenosis/occlusion MRI Brain: 9 mm acute infarct within the right aspect of the corry and several smaller acute infarcts within the right cerebellar hemisphere. Several old lacunar infarcts within the left cerebellar hemisphere Echo 11/01: LVEF 60-65%, mild MR/TR. No ASD. PFO not assessed. - Repeat CT head @ 24 hours without hemorrhagic conversion - BP appears well controlled on her usual diltiazem - continue on reduced dose to avoid hypotension - Prevention measures Statin: switch simvastatin 20 to rosuvastatin 20mg PO daily. LDL [address] Willis (recommending aspirin alone, defer anticoagulation to cardiology), no atrial fibrillation on monitor and no mention of this in H&P or ER note, discussed with Dr Hooper however and recommended starting anticoagulation for prior isolated history and now strokes seen in more than one vessel distribution. Usually would start 4-14 days after CVA and since TNK given and no current a. fib will elect for around 7 days after CVA to start Eliquis. - Continue telemetry to monitor for Afib - Medically stable for discharge at this time (2) Atrial fibrillation: Plan: H/o paroxysmal Afib (single episode 2010 per cardiology notes) not on chronic AC. 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 Follows with [facility] cardiology Dr Hooper Echo 08/2019: LVEF 65%, borderline LVH, G1DD, elevated LA pressures NSR on admission, although also report of Afib on arrival CHADSVASC 6 - Reduce dilt 120mg qhs to avoid relative hypotension - Telemetry - start Eliquis 7 days after CVA as above (3) Hypertension: Plan: Poor outpatient control. Not on home meds other than diltiazem Last required labetalol 10/31 21:10 - Reduce diltiazem as above (4) Hyperlipidemia: Plan: Lipids 11/01 w/ LDL 74 - Start rosuvastatin 20 - Goal LDL<70 (5) Hypothyroidism: Plan: - Continue levothyroxine 100 mcg daily. (6) Anxiety: Plan: -Continue home Lamictal and Remeron. Plan: VTE Prophylaxis - Lovenox 40mg SQ daily Diet - heart healthy, aspiration precautions, cut meats Disposition - continued stay on telemetry 48 hours s/p TNK, medically stable beyond this time awaiting placement Admission and Anticipated Discharge Date Admission Date: October 31, 2021 Subjective No new change in symptoms. Still having some minor dysarthria and mild clumsiness. Using a walker for ambulation. Review of Systems Review of Systems: All systems reviewed & are unremarkable except as noted in Subjective Physical Exam Constitutional: WD/WN, vitals as above Eyes: PERRL, conjunctivae normal, anicteric sclerae EOM intact bilaterally (no diplopia) ENMT: external ear and nose normal, oropharynx normal Respiratory: normal respiratory effort, lungs clear to auscultation Cardiovascular: RRR, no murmur, no edema Gastrointestinal (Abdomen): normal bowel sounds, soft, nontender, no hepatosplenomegaly Musculoskeletal: no cyanosis or clubbing, extremities motor strength 5/5 Skin: no rashes, warm and dry Neurologic: moves all extremities and awake; no focal motor deficits and not confused Speech / Cognition: + abnormal speech (mild dysarthria) Motor/Sensory: no tremor, no pronator drift and no sensory deficit Coordination: normal [id number]-dt-[id number] test Psychiatric: A+Ox3, euthymic affect Results & Data Results & Data ([facility]) Vital Signs (Past 12 Hours) Vital Signs Temp Pulse Pulse Resp BP Pulse Ox 11/03/21 14:49 36.4 C L 74 20 156/90 H 92 11/03/21 09:45 68 11/03/21 08:20 36.3 C L 61 18 167/87 H 94 PG Care Time/CCT Total # of Minutes Spent Total Time Spent with Patient: Total time spent is greater than 50% in coordination of care (as documented) at patient's floor/unit and/or counseling patient: Coding Level of Care Code 73022 Subseq Hosp Care Lvl 1 Diagnoses Right pontine cerebrovascular accident I63.50 Atrial fibrillation I48.91 Atrial fibrillation type: unspecified Hypertension I10 Hyperlipidemia E78.5 Hypothyroidism E03.9 Anxiety F41.9 (1) Atrial fibrillation Atrial fibrillation type: unspecified Qualified Code(s): I48.91 - Unspecified atrial fibrillation
[2021-11-03] MEDS: traZODone HCL 100 MG TAB PO PRN (20:19)
[2021-11-03] MEDS: dilTIAZem HCL 120 MG CAPCR PO SCH (20:20)
[2021-11-03] MEDS: MELATONIN 3 MG TAB PO PRN (20:21)
[2021-11-03] MEDS ORDERED: CYANOCOBALAMIN 500 MCG TABLET (VITAMIN B-12) PO SCH (21:00)
[2021-11-03] MEDS: ENOXAPARIN INJ 40 MG/0.4 ML SYR SQ SCH (21:56)
[2021-11-03] MEDS: lamoTRIgine 25 MG TAB PO SCH (21:56)
[2021-11-03] MEDS: LEVOTHYROXINE SODIUM 100 MCG TABLET PO SCH (21:56)
[2021-11-03] MEDS: MIRTAZAPINE TAB 15 MG TAB PO SCH (21:56)
[2021-11-03] MEDS: ROSUVASTATIN CALCIUM 20 MG TAB PO SCH (21:57)
[2021-11-04 06:38] LABS: Basophils # (auto) 0.04 K/uL (0-0.2); Basophils % (auto) 0.6 %; Eosinophils # (auto) 0.14 K/uL (0-0.5); Eosinophils % (auto) 2.2 %; Hematocrit (blood only) 43.9 % (37-47); Hemoglobin 14.6 g/dL (12.0-16.0); Immature Granulocytes # (auto) 0.01 K/uL (0.00-0.02); Immature Granulocytes % (auto) 0.2 %; Lymphocytes # (auto) 1.39 K/uL (1.2-3.4); Lymphocytes % (auto) 21.6 %; Mean Corpuscular Hemoglobin 32.2 pg (25-34); Mean Corpuscular Hgb Conc 33.3 g/dL (32-36); Mean Corpuscular Volume 96.7 fL (80-100); Mean Platelet Volume 10.6 fL (7.4-10.4); Monocytes # (auto) 0.85 K/uL (0.11-0.59); Monocytes % (auto) 13.2 %; Neutrophils % (auto) 62.2 %; Platelet Count 158 K/uL (130-400); RDW Coefficient of Variation 12.8 % (11.5-14.5); RDW Standard Deviation 45.1 fL (36.4-46.3); Red Blood Count 4.54 M/uL (4.2-5.4); White Blood Count 6.43 K/uL (4.8-10.8)
[2021-11-04 07:09] LABS: BUN Creatinine Ratio 24.7 (10-20); Calcium 8.6 mg/dl (8.5-10.1); Creatinine Clr Calc Pharmacy 60.1 ml/min; Est GFR (African American) 76.2 ml/min; Est GFR (Non-African American) 65.8 ml/min; Potassium 3.6 mmol/L (3.5-5.1)
[2021-11-04] MEDS: SENNA 8.6 MG TAB PO SCH (08:45)
[2021-11-04] MEDS ORDERED: STROKE PATIENT DISCHARGE STA (12:55)
--- NOTE | 2021-11-04 12:55 | Discharge Summary ---
Date of Service November 04, 2021 Admission HPI Per Admitting Provider Patient is a 86-year-old female the past medical history of paroxysmal A. fibb rhythm controlled not on anticoagulation, HTN, HLD, and anxiety who presents today from home with dizziness and numbness of her lips since 3:45 PM. Patient initially decided to stay home and see if her symptoms would resolve, however they had not by 5:30 PM at which time she pressed her life alert bracelet. EMS brought patient to ED for further evaluation. Denies headache, confusion, chest pain, palpitations, nausea, vomiting, diarrhea. Denies hematuria, melena, hematochezia, recent surgery, Initial NIHSS in ED 2. (9:1, 10:1.) NIH scale upon my exam: 2 (3:1, 10:1) 1545: Patient began experiencing dizziness, lip numbness at home. 1729: Patient called EMS. 1756: Patient was evaluated in the ED, code stroke was called. 1906: CT is negative. Spoke with Dr. Sujit Loving telestroke who evaluated the patient. She states the patient is now developing right upper extremity ataxia. She recommends given the patient thrombolytics. TNKase will be ordered for the patient. 1940: Patient was hypertensive. Labetalol boluses given to the patient prior to administration of TNK to the blood pressure within range to push the TNK. TNK pushed. Principal Diagnosis CVA Paroxysmal atrial flutter/fibrillation Discharge Exam Constitutional WD/WN, vitals as above Eyes PERRL, conjunctivae normal, anicteric sclerae EOM intact bilaterally (no diplopia) ENMT external ear and nose normal, oropharynx normal Respiratory normal respiratory effort, lungs clear to auscultation Cardiovascular RRR, no murmur, no edema Gastrointestinal (Abdomen) normal bowel sounds, soft, nontender, no hepatosplenomegaly Musculoskeletal no cyanosis or clubbing, extremities motor strength 5/5 Skin no rashes, warm and dry Neurologic moves all extremities and awake; no focal motor deficits and not confused Speech / Cognition: + abnormal speech (mild dysarthria) Motor/Sensory: no tremor, no pronator drift and no sensory deficit Coordination: normal tfrhcq-ak-ppwe test Psychiatric A+Ox3, euthymic affect Discharge Data Allergies Allergy/AdvReac Type Severity Reaction Status Date / Time cephalexin Allergy Mild RASH Verified 10/31/21 18:35 lisinopril AdvReac Intermediate Cough Verified 10/31/21 18:35 prednisone AdvReac Intermediate psychosis Verified 10/31/21 18:35 sertraline AdvReac Mild Drowsy Verified 10/31/21 18:35 Consultations 10/31/21 19:48 ED Decision to Admit Stat 10/31/21 20:17 Consult Neurology Routine 10/31/21 21:34 Consult Manager [employer] Routine Ordered Studies 10/31/21 18:17 CT angio head w con Stat CT angio neck with con Stat IMPRESSION:Atherosclerotic vascular disease without aneurysm, dissection, high- grade stenosis or arterial occlusion. CT head/brain wo con Stat IMPRESSION: 1. No acute intracranial hemorrhage, midline shift or acute territorial infarct. 2. Age-related involutional changes with chronic microvascular ischemic disease. 3. 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 11/01/21 08:44 MR brain wo/w con Routine IMPRESSION: 1. 9 mm acute infarct within the right aspect of the corry and several smaller acute infarcts within the right cerebellar hemisphere. No mass effect. No acute hemorrhage. 2. Several old lacunar infarcts within the left cerebellar hemisphere. 3. No intracranial mass or pathologic enhancement. 11/01/21 19:20 CT head/brain wo con Routine IMPRESSION: 1. No acute intracranial hemorrhage or mass effect. 2. Small acute infarcts within the right aspect of the corry and right cerebellar hemisphere on MRI are not evident on this study due to CT technique. No evidence for hemorrhagic conversion. No mass effect. Hospital Course (1) Right pontine cerebrovascular accident: (2) Atrial fibrillation: (3) Hypertension: (4) Hyperlipidemia: (5) Hypothyroidism: (6) Anxiety: Brianda Marshall is an 86 year old female admitted to [facility] from October 31 to November 04, 2021 due to dizziness, lip numbness, dysarthria and right upper extremity weakness. She was diagnosed with right pontine and cerebellar ischemic stroke. This was treated with TNKase with significant improvement of symptoms. CT head at 24 hours showed no hemorrhagic conversion of your stroke. One episode of atrial flutter seen on the monitor lasting for only a few seconds. Given her history of atrial fibrillation after a stress test, her case was discussed with her customer consultant Dr. Hooper and recommended starting anticoagulation for future stroke risk reduction. This should be started 7 days after stroke on November 07 with Eliqusherlyn. Please continue aspirin and statin in addition as prescribed below. For ongoing rate control as discussed with your customer consultant recommend switching your diltiazem to standard release as prescribed below. Physical therapy recommend ongoing rehabilitation therefore you are now being discharged to [facility] for further rehab. Total Time Total Time Spent Total Time Spent (In Minutes): 50 Discharge Plan Discharge Items Patient Disposition: Transfer Inpatient Rehab Fac Reason For Visit: CVA Discharge Diagnosis: CVA Paroxysmal atrial flutter/fibrillation Activity: Resume your previous activity Non-emergency contact: Primary Care Provider and Neurologist Call non-emergency contact if: you have any medication questions and your symptoms worsen Follow-up/Referrals: Bhaskar Wall MD [Primary Care Provider] - Diet: Heart Healthy Addtl Attending Provider Instructions: You were admitted to [facility] from October 31 to November 04, 2021 due to dizziness, lip numbness, dysarthria and right upper extremity weakness. He was diagnosed with right pontine and cerebellar ischemic stroke. This was treated with TNKase with significant improvement of symptoms. CT head at 24 hours showed no hemorrhagic conversion of your stroke. One episode of atrial flutter seen on the monitor lasting for only a few seconds. Given your history of atrial fibrillation after a stress test your case was discussed with your customer consultant Dr. Powers and recommended starting anticoagulation for future stroke risk reduction. This should be started 7 days after stroke on November 07. Please continue aspirin and statin in addition as prescribed below. For ongoing rate control as discussed with your customer consultant recommend switching your diltiazem to standard release. Physical therapy recommend ongoing rehabilitation therefore you are now being discharged to [facility] for further rehab. Pending Studies at Discharge: Yes Stand-Alone Forms: Medications to Prevent Stroke, My [facility], Smoking Cessation Medications and DC Order Prescriptions: New aspirin 81 mg Tablet,Delayed Release (Dr/Ec) 81 mg PO QAM Qty: 30 RF: 0 diltiazem HCl 30 mg Tablet 30 mg PO BID Qty: 60 RF: 0 rosuvastatin [Crestor] 20 mg Tablet 20 mg PO QPM Qty: 30 RF: 0 Eliquis 5 mg tablet 5 mg PO BID Qty: 60 RF: 0 Continued trazodone 50 mg Tablet 150 mg PO HS RF: 0 lamotrigine [Lamictal] 25 mg Tablet 25 mg PO HS RF: 0 levothyroxine 100 mcg Tablet 100 mcg PO HS RF: 0 mirtazapine [Remeron] 15 mg Tablet 15 mg PO HS RF: 0 cyanocobalamin (vitamin B-12) [Vitamin B-12] 1,000 mcg Tablet 1,000 mcg PO HS RF: 0 melatonin 5 mg Tablet 5 mg PO HS PRN (Reason: Sleep) RF: 0 Discontinued simvastatin 20 mg Tablet 20 mg PO HS RF: 0 diltiazem HCl 180 mg capsule,extended release 24hr 180 mg PO HS RF: 0 Discharge Orders: Discharge Order (Routine); Ordered 11/04/21 Ordered By: Garrick Clements Admission Data Admit Date/Time: 10/31/21 20:42 Attending Provider: Garrick Clements Admit Provider: Kimmie White Primary Care Provider: Bhaskar Wall Other Providers: [facility] ; [facility] ; Kimmie White ; Garth Abraham ; Yann Mayorga Other Interventions: Discharge Summary Assessment (RN) Last Done: 11/04/21 13:07 Coding Level of Care Code D/C DAY MANAGEMENT >30 MINS Diagnoses Right pontine cerebrovascular accident I63.50 Atrial fibrillation I48.91 Atrial fibrillation type: unspecified Hypertension I10 Hyperlipidemia E78.5 Hypothyroidism E03.9 Anxiety F41.9
[2021-11-04] MEDS ORDERED: dilTIAZem HCL 30 MG TAB PO SCH (21:00)
== END 2021-11-04 14:17 | DRG 62 ==
LOC: ED 17:52 → SUATTDRO 20:42 → EDINP 20:42 → 1E 11-01 16:19 → 2N 11-03 11:25